=== PATIENT | male | born 1990 | race African-American/Black ===

== ENCOUNTER 2016-09-05 14:17 | Inpatient (IN) | payer OTHER ==
[2016-09-05 15:44] VITALS: BMI 22.9
--- NOTE | 2016-09-05 18:17 | HP ---
CIWA Score - CIWA Score Nausea/Vomitin Muscle Tremors: 4-Moderate,w/Arms Extend Anxiety: 4-Mod. Anxious/Guarded Agitation: 4-Moderately Restless Paroxysmal Sweats: 2 Orientation: 1-Uncertain about Date Tacttile Disturbances: 0-None Auditory Disturbances: 0-None Visual Disturbances: 0-None Headache: 0-None Present CIWA-Ar Total Score: 17 Admission ROS [facility] - HPI Chief Complaint: withdrawal sx Allergies/Adverse Reactions: Allergies Allergy/AdvReac Type Severity Reaction Status Date / Time No Known Allergies Allergy Verified 09/05/16 16:45 History of Present Illness: 26 years old male with long history of alcohol nicotine dependence, denies medical denies mental illness, longest sobriety 1 day is admitted to detox Exam Limitations: No Limitations - Ebola screening Have you traveled outside of the country in the last 21 days: No Have you had contact with anyone from an Ebola affected area: No Have you been sick,other than usual withdrawal symptoms: No Do you have a fever: No - Review of Systems Constitutional: Chills, Loss of Appetite, Changes in sleep, Unexplained wgt Loss EENT: reports: No Symptoms Reported Respiratory: reports: No Symptoms reported Cardiac: reports: No Symptoms Reported GI: reports: Nausea, Poor Appetite, Poor Fluid Intake, Vomiting, Abdominal cramping : reports: Flank Pain Musculoskeletal: reports: No Symptoms Reported Integumentary: reports: No Symptoms Reported Neuro: reports: Tremors Endocrine: reports: No Symptoms Reported Hematology: reports: No Symptoms Reported Psychiatric: reports: Judgement Intact, Mood/Affect Appropiate Other Systems: Reviewed and Negative Patient History - Patient Medical History Hx Anemia: No Hx Asthma: No Hx Chronic Obstructive Pulmonary Disease (COPD): No Hx Cancer: No Hx Cardiac Disorders: No Hx Congestive Heart Failure: No Hx Hypertension: No Hx Hypercholesterolemia: No Hx Pacemaker: No HX Cerebrovascular Accident: No Hx Seizures: No Hx Dementia: No Hx Diabetes: No Hx Gastrointestinal Disorders: No Hx Liver Disease: No Hx Genitourinary Disorders: No Hx Sexually Transmitted Disorders: No Hx Renal Disease (ESRD): No Hx Thyroid Disease: No Hx Human Immunodeficiency Virus (HIV): No Hx Hepatitis C: No Hx Depression: No Hx Suicide Attempt: No Hx Bipolar Disorder: No Hx Schizophrenia: No - Patient Surgical History Past Surgical History: No - PPD History Previous Implant?: Yes Documented Results: Negative w/o proof Implanted On Prior [facility] Admission?: No PPD to be Administered?: Yes - Smoking Cessation Smoking history: Current every day smoker Have you smoked in the past 12 months: Yes Aproximately how many cigarettes per day: 8 Cigars Per Day: 0 Hx Chewing Tobacco Use: No Initiated information on smoking cessation: Yes 'Breaking Loose' booklet given: 09/05/16 - Substance & Tx. History Hx Alcohol Use: Yes Hx Substance Use: No Substance Use Type: Alcohol Hx Substance Use Treatment: Yes - Substances Abused Alcohol Route: Oral Frequency: Daily Amount used: 4 PINTS LUZMARIA Age of first use: 16 Date of Last Use: 09/05/16 Family Disease History - Family Disease History Family Disease History: [place]: Grandparent, Respiratory: Sister (asthma) Admission Physical Exam [facility] - Vital Signs Vital Signs: Vital Signs - 24 hr 09/05/16 15:42 Temperature 97.4 F L Pulse Rate 69 Respiratory 20 Rate Blood Pressure 122/68 - Physical General Appearance: Yes: Appropriately Dressed, Moderate Distress, Thin, Tremorous, Irritable, Sweating, Anxious HEENTM: Yes: Hearing grossly Normal, Normal ENT Inspection, Normocephalic, Normal Voice Respiratory: Yes: Chest Non-Tender, Lungs Clear, Normal Breath Sounds, No Respiratory Distress, No Accessory Muscle Use Neck: Yes: Supple, Trachea in good position Breast: Yes: Breasts Symetrical Cardiology: Yes: Regular Rhythm, Regular Rate, S1, S2 Abdominal: Yes: Non Tender, Soft Genitourinary: Yes: Within Normal Limits Back: Yes: Normal Inspection Musculoskeletal: Yes: full range of Motion, Gait Steady Extremities: Yes: Normal Range of Motion, Non-Tender, Tremors Neurological: Yes: Alert, Motor Strength 5/5 Integumentary: Yes: Warm, Moist Lymphatic: Yes: Within Normal Limits - Diagnostic (1) Alcohol dependence with uncomplicated withdrawal Current Visit: Yes Status: Acute (2) Nicotine dependence Current Visit: Yes Status: Acute Qualifiers: Nicotine product type: cigarettes Substance use status: in withdrawal Qualified Code(s): F17.213 - Nicotine dependence, cigarettes, with withdrawal (3) Weight loss Current Visit: Yes Status: Acute Cleared for Admission [facility] - Detox or Rehab [facility] Level of Care: Medically Managed Detox Regimen/Protocol: Librium [facility] Breath Alcohol Content Breath Alcohol Content: 0.040 Urine Drug Screen - Results Drug Screen Negative: Yes
[2016-09-05] MEDS ORDERED: NICOTINE POLACRILEX 2 MG GUM BUC PRN (18:19)
[2016-09-05] MEDS ORDERED: ACETAMINOPHEN 325 MG TABLET (FP) PO PRN (18:19)
[2016-09-05] MEDS ORDERED: guaiFENesin/D-METHORPHAN HB 10 ML UNIT-DOSE CUPS PO PRN (18:19)
[2016-09-05] MEDS ORDERED: LOPERAMIDE HCL 2 MG CAPSULE PO PRN (18:19)
[2016-09-05] MEDS ORDERED: chlordiazePOXIDE HCL 25 MG CAPSULE PO PRN (18:19)
[2016-09-05] MEDS ORDERED: P-EPHED 60MG/TRIPROLIDI 2.5MG TABLET PO PRN (18:19)
[2016-09-05] MEDS ORDERED: MAG HYDROX/AL HYDROX/SIMETH 30 ML UNIT-DOSE CUP PO PRN (18:19)
[2016-09-05] MEDS ORDERED: MENTHOL/PHENOL 1 EACH UD MM PRN (18:19)
[2016-09-05] MEDS ORDERED: MAGNESIUM HYDROX 2400MG/30ML ORAL SUSPENSION 30 ML CUP PO PRN (18:19)
[2016-09-05] MEDS ORDERED: MAGNESIUM CITRATE 300 ML BOTTLE PO PRN (18:19)
[2016-09-05] MEDS ORDERED: IBUPROFEN 400 MG TABLET (FP) PO PRN (18:19)
[2016-09-05] MEDS ORDERED: hydrOXYzine PAMOATE 50 MG CAPSULE (FP) PO PRN (18:19)
[2016-09-05] MEDS: THIAMINE HCL 100 MG TABLET (FP) PO SCH (22:06)
[2016-09-05] MEDS: diphenhydrAMINE HCL 50 MG CAPSULE PO PRN (22:07)
[2016-09-05] MEDS: chlordiazePOXIDE HCL 25 MG CAPSULE PO SCH (22:07)
[2016-09-05 23:56] LABS: URINE APPEARANCE CLEAR; URINE BILIRUBIN NEGATIVE (NEGATIVE); URINE BLOOD NEGATIVE (NEGATIVE); URINE COLOR LTYELLOW; URINE GLUCOSE (UA) NEGATIVE (NEGATIVE); URINE KETONE NEGATIVE (NEGATIVE); URINE LEUK ESTERASE NEGATIVE (NEGATIVE); URINE NITRITE NEGATIVE (NEGATIVE); URINE PROTEIN NEGATIVE (NEGATIVE); URINE UROBILINOGEN NEGATIVE E.U./dl (0.2-1.0)
[2016-09-06] MEDS: chlordiazePOXIDE HCL 25 MG CAPSULE PO SCH ×4 (05:28→22:10)
[2016-09-06 09:45] LABS: MCH 30.5 pg (25.7-33.7); MCHC 33.2 g/dl (32.0-35.9); MEAN CELL VOLUME 91.9 fl (80-96); MEAN PLT VOLUME 8.8 fl (7.5-11.1); PLATELET COUNT 299 K/MM3 (134-434); RDW 13.3 % (11.9-15.9); WHITE BLOOD COUNT 5.6 K/mm3 (4.0-10.0)
[2016-09-06] MEDS: NICOTINE 14 MG/24 HOURS TOPICAL PATCH TD SCH (10:13)
[2016-09-06] MEDS: PRENATAL VITAMINS W/ FOLIC ACID TABLET (FP) PO SCH (10:14)
[2016-09-06 10:16] LABS: ALBUMIN 4.3 g/dl (3.4-5.0); ALK PHOS 106 U/L (45-117); ANION GAP 9 (8-16); BILIRUBIN,TOTAL 0.8 mg/dL (0.2-1.0); CALCIUM 9.8 mg/dL (8.5-10.1); CO2 28 mmol/L (21-32); GLUCOSE,RANDOM 114 mg/dL (74-106); SGOT/AST 36 U/L (15-37); SGPT/ALT 29 U/L (12-78); TOT PROT 7.8 g/dl (6.4-8.2)
--- NOTE | 2016-09-06 11:09 | PN ---
BHS CIWA - CIWA Score Nausea/Vomitin Muscle Tremors: 4-Moderate,w/Arms Extend Anxiety: 4-Mod. Anxious/Guarded Agitation: 4-Moderately Restless Paroxysmal Sweats: 3 Orientation: 0-Oriented Tacttile Disturbances: 1-Very Mild Itch/Numbness Auditory Disturbances: 0-None Visual Disturbances: 0-None Headache: 1-Very Mild CIWA-Ar Total Score: 20 BHS Progress Note (SOAP) Subjective: nausea, sweats, interrupted sleep, anxiety, tremors Objective: 09/06/16 11:08 Vital Signs - 8 hr 09/06/16 09/06/16 09/06/16 03:30 06:19 09:33 Temperature 97.7 F 97.9 F Pulse Rate 66 65 Respiratory 18 18 16 Rate Blood Pressure 122/76 119/62 Laboratory Tests 09/05/16 09/06/16 09/06/16 22:00 06:00 06:00 WBC 5.6 RBC 4.72 Hgb 14.4 Hct 43.4 MCV 91.9 MCHC 33.2 RDW 13.3 Plt Count 299 MPV 8.8 Sodium 139 Potassium 4.4 Chloride 102 Carbon Dioxide 28 Anion Gap 9 BUN 9 Creatinine 1.0 Creat Clearance w eGFR > 60 Random Glucose 114 H Calcium 9.8 Total Bilirubin 0.8 AST 36 ALT 29 Alkaline Phosphatase 106 Total Protein 7.8 Albumin 4.3 Urine Color Ltyellow Urine Appearance Clear Urine pH 8.0 Ur Specific [place] 1.019 Urine Protein Negative Urine Glucose (UA) Negative Urine Ketones Negative Urine Blood Negative Urine Nitrite Negative Urine Bilirubin Negative Urine Urobilinogen Negative Ur Leukocyte Esterase Negative Assessment: 09/06/16 11:08 withdrawal sx Plan: cont detox
[2016-09-06] MEDS: THIAMINE HCL 100 MG TABLET (FP) PO SCH (22:10)
--- NOTE | 2016-09-06 23:34 | EKG ---
Test Reason : Blood Pressure : / mmHG Vent. Rate : 060 BPM Atrial Rate : 060 BPM P-R Int : 128 ms QRS Dur : 116 ms QT Int : 404 ms P-R-T Axes : 062 -06 031 degrees QTc Int : 404 ms NORMAL SINUS RHYTHM WITH SINUS ARRHYTHMIA NORMAL ECG WHEN COMPARED WITH ECG OF 05-SEP-2016 20:24, RSR' PATTERN IN V1 IS NO LONGER PRESENT Confirmed by FRANDY DOHERTY, KRISTIN ([id number]) on 09/06/2016 11:33:57 PM Referred By: Manish Gutierres Confirmed By:KRISTIN WISE MD
--- NOTE | 2016-09-06 23:35 | EKG ---
Test Reason : Blood Pressure : / mmHG Vent. Rate : 057 BPM Atrial Rate : 057 BPM P-R Int : 140 ms QRS Dur : 098 ms QT Int : 394 ms P-R-T Axes : -06 -12 028 degrees QTc Int : 383 ms SINUS BRADYCARDIA RSR' OR QR PATTERN IN V1 SUGGESTS RIGHT VENTRICULAR CONDUCTION DELAY SEPTAL INFARCT , AGE UNDETERMINED ABNORMAL ECG NO PREVIOUS ECGS AVAILABLE Confirmed by KRISTIN WISE MD ([id number]) on 09/06/2016 11:35:11 PM Referred By: Manish Gutierres Confirmed By:KRISTIN WISE MD
[2016-09-07] MEDS: chlordiazePOXIDE HCL 25 MG CAPSULE PO SCH ×3 (05:42→17:39)
[2016-09-07] MEDS: NICOTINE 14 MG/24 HOURS TOPICAL PATCH TD SCH (10:18)
[2016-09-07] MEDS: PRENATAL VITAMINS W/ FOLIC ACID TABLET (FP) PO SCH (10:18)
--- NOTE | 2016-09-07 10:54 | PN ---
S CIWA - CIWA Score Nausea/Vomitin-No Nausea/No Vomiting Muscle Tremors: 4-Moderate,w/Arms Extend Anxiety: 4-Mod. Anxious/Guarded Agitation: 4-Moderately Restless Paroxysmal Sweats: 3 Orientation: 0-Oriented Tacttile Disturbances: 0-None Auditory Disturbances: 0-None Visual Disturbances: 0-None Headache: 0-None Present CIWA-Ar Total Score: 15 BHS Progress Note (SOAP) Subjective: tired sweats shakes interrupted sleep irritable Objective: 09/07/16 10:52 Vital Signs Temperature 98.4 F 09/07/16 09:54 Pulse Rate 90 09/07/16 09:54 Respiratory Rate 20 09/07/16 09:54 Blood Pressure 102/62 09/07/16 09:54 O2 Sat by Pulse Oximetry (%) Laboratory Tests 09/05/16 09/06/16 09/06/16 22:00 06:00 06:00 WBC 5.6 RBC 4.72 Hgb 14.4 Hct 43.4 MCV 91.9 MCHC 33.2 RDW 13.3 Plt Count 299 MPV 8.8 Sodium 139 Potassium 4.4 Chloride 102 Carbon Dioxide 28 Anion Gap 9 BUN 9 Creatinine 1.0 Creat Clearance w eGFR > 60 Random Glucose 114 H Calcium 9.8 Total Bilirubin 0.8 AST 36 ALT 29 Alkaline Phosphatase 106 Total Protein 7.8 Albumin 4.3 Urine Color Ltyellow Urine Appearance Clear Urine pH 8.0 Ur Specific [place] 1.019 Urine Protein Negative Urine Glucose (UA) Negative Urine Ketones Negative Urine Blood Negative Urine Nitrite Negative Urine Bilirubin Negative Urine Urobilinogen Negative Ur Leukocyte Esterase Negative RPR Titer 09/06/16 06:00 WBC RBC Hgb Hct MCV MCHC RDW Plt Count MPV Sodium Potassium Chloride Carbon Dioxide Anion Gap BUN Creatinine Creat Clearance w eGFR Random Glucose Calcium Total Bilirubin AST ALT Alkaline Phosphatase Total Protein Albumin Urine Color Urine Appearance Urine pH Ur Specific [place] Urine Protein Urine Glucose (UA) Urine Ketones Urine Blood Urine Nitrite Urine Bilirubin Urine Urobilinogen Ur Leukocyte Esterase RPR Titer Nonreactive awake/alert ambulating no acute distress Assessment: 09/07/16 10:52 withdrawal sx Plan: continue detox increase fluids
[2016-09-07] MEDS: diphenhydrAMINE HCL 50 MG CAPSULE PO PRN (22:11)
[2016-09-07] MEDS: THIAMINE HCL 100 MG TABLET (FP) PO SCH (22:12)
[2016-09-07] MEDS: chlordiazePOXIDE 5 MG CAPSULE PO SCH (22:12)
[2016-09-08] MEDS: chlordiazePOXIDE 5 MG CAPSULE PO SCH ×3 (05:56→17:55)
[2016-09-08] MEDS: NICOTINE 14 MG/24 HOURS TOPICAL PATCH TD SCH (10:10)
[2016-09-08] MEDS: PRENATAL VITAMINS W/ FOLIC ACID TABLET (FP) PO SCH (10:13)
--- NOTE | 2016-09-08 10:39 | PN ---
BHS Progress Note (SOAP) Subjective: sweats interrupted sleep Objective: 09/08/16 10:38 Vital Signs Temperature 97 F L 09/08/16 09:33 Pulse Rate 108 H 09/08/16 09:33 Respiratory Rate 20 09/08/16 09:33 Blood Pressure 102/59 09/08/16 09:33 O2 Sat by Pulse Oximetry (%) awake/alert ambulating no acute distress Assessment: 09/08/16 10:39 withdrawal sx Plan: continue detox increase fluids d/c in am
[2016-09-08] MEDS: chlordiazePOXIDE HCL 10 MG CAPSULE PO SCH (22:27)
[2016-09-08] MEDS: diphenhydrAMINE HCL 50 MG CAPSULE PO PRN (22:27)
[2016-09-08] MEDS: THIAMINE HCL 100 MG TABLET (FP) PO SCH (22:27)
[2016-09-09] MEDS: chlordiazePOXIDE HCL 10 MG CAPSULE PO SCH ×2 (05:32→10:54)
[2016-09-09 06:26] VITALS: PULSE 95
--- NOTE | 2016-09-09 08:57 | PN ---
S Progress Note (SOAP) Subjective: ALERT,NO COMPLAINT Objective: 09/09/16 08:56 Vital Signs Temperature 97.9 F 09/09/16 06:00 Pulse Rate 95 H 09/09/16 06:00 Respiratory Rate 18 09/09/16 06:00 Blood Pressure 100/65 09/09/16 06:00 O2 Sat by Pulse Oximetry (%) Assessment: 09/09/16 08:56 DETOX COMPLETED,NO WITHDRAWAL SYMPTOM Plan: DISCHARGE TODAY,FOLLOW UP WITH AFTER CARE PROGRAM ARRANGEMENT
--- NOTE | 2016-09-09 08:59 | DS ---
[facility] Detox Discharge Summary Admission Date: 09/05/16 Discharge Date: 09/09/16 - History Present History: Alcohol Dependence Additional Comments: FOLLOW UP WITH [facility] ARRANGEMENT Pertinent Past History: NICOTINE DEPENDENCE - Physical Exam Results Vital Signs: Vital Signs Temperature 97.9 F 09/09/16 06:00 Pulse Rate 95 H 09/09/16 06:00 Respiratory Rate 18 09/09/16 06:00 Blood Pressure 100/65 09/09/16 06:00 O2 Sat by Pulse Oximetry (%) Pertinent Admission Physical Exam Findings: WITHDRAWAL SYMPTOM - Treatment Hospital Course: Detox Protocol Followed, Detoxed Safely, Responded well, Discharged Condition Good Patient has Accepted a Rehab Referral to: [facility] - Medication Discharge Medications: Ambulatory Orders NK [No Known Home Medication] 09/05/16 - AMA Did Patient Leave Against Medical Advice: No
[2016-09-09] MEDS: PRENATAL VITAMINS W/ FOLIC ACID TABLET (FP) PO SCH (10:54)
[2016-09-09] MEDS: NICOTINE 14 MG/24 HOURS TOPICAL PATCH TD SCH (10:54)
[2016-09-09 11:26] VITALS: BP 125/75; TEMP 98.2
== END 2016-09-09 13:30 | disposition other institution (70) | DRG 775 ==
LOC: YASAS 14:17 → Y6N 17:31
PROVIDERS: ADMIT Internal Medicine Addiction Medicine; ATTEND Internal Medicine Addiction Medicine
PROC: HZ2ZZZZ Detoxification Services for Substance Abuse Treatment (ICD-10-PCS; principal; 2016-09-09)
DX: F10.230 Alcohol dependence with withdrawal, uncomplicated (principal); F17.213 Nicotine dependence, cigarettes, with withdrawal; R63.4 Abnormal weight loss; Z68.23 Body mass index [BMI] 23.0-23.9, adult
CPT/HCPCS: 36415; 80053; 81003; 85027; 86593; 93005; 93010

== ENCOUNTER 2016-09-09 13:54 | Inpatient (IN) | payer OTHER ==
--- NOTE | 2016-09-09 15:35 | HP ---
Psychiatrist Admission - Data Date of interview: 09/09/16 Admission source: 3N Identifying data: This is the first 5N inpatient rehabilitation admission for thsi 26 year old single male , father of one residing with his mother, grandmother in [facility]. He is unemployed and supported by family. Medical History: Reports good physical health, smokes 8-10 cigarettes a day. Psychiatric History: Denies history of psychiatric treatment. Physical/Sexual Abuse/Trauma History: Denies history of sexual, physical and verbal abuse. Vital Signs: Vital Signs - 24 hr 09/09/16 14:38 Temperature 98.6 F Pulse Rate 98 H Respiratory 18 Rate Blood Pressure 125/73 Allergies/Adverse Reactions: Allergies Allergy/AdvReac Type Severity Reaction Status Date / Time No Known Allergies Allergy Verified 09/05/16 16:45 Date of last physical exam: 08/26/16 Concur with the findings of this exam: Yes - Substance Abuse/Tx History Hx Alcohol Use: Yes (4 pints of liquor daily) Hx Substance Use: No Substance Use Type: Alcohol (stared drinking at age of 14) Hx Substance Use Treatment: No (this is the first rehab. tx) - Admission Criteria Previous failed treatment: No Poor recovery environment: Yes Comorbidities: No Lacks judgement: Yes Mental Status Exam - Mental Status Exam Alert and Oriented to: Time, Place, Person Cognitive Function: Good Patient Appearance: Well Groomed Mood: Hopeful Affect: Appropriate, Mood Congruent Patient Behavior: Appropriate, Cooperative Speech Pattern: Clear, Appropriate Voice Loudness: Normal Thought Process: Intact, Goal Oriented Thought Disorder: Not Present Hallucinations: Denies Suicidal Ideation: Denies Homicidal Ideation: Denies Insight/Judgement: Fair Sleep: Fair Appetite: Fair Muscle strength/Tone: Normal Gait/Station: Normal Psychiatric Findings - Problem List ([place] 1, 2,3) (1) Nicotine dependence Current Visit: No Status: Acute Qualifiers: Nicotine product type: cigarettes Substance use status: in withdrawal Qualified Code(s): F17.213 - Nicotine dependence, cigarettes, with withdrawal (2) Alcohol dependence Current Visit: Yes Status: Acute - Initial Treatment Plan Initial Treatment Plan: Patient made aware of Benadryl PRN for insomnia,will continue to monitor progress as needed.
[2016-09-09] MEDS ORDERED: MAGNESIUM CITRATE 300 ML BOTTLE PO PRN (15:44)
[2016-09-09] MEDS ORDERED: P-EPHED 60MG/TRIPROLIDI 2.5MG TABLET PO PRN (15:44)
[2016-09-09] MEDS ORDERED: guaiFENesin/D-METHORPHAN HB 10 ML UNIT-DOSE CUPS PO PRN (15:44)
[2016-09-09] MEDS ORDERED: MENTHOL/PHENOL 1 EACH UD MM PRN (15:44)
[2016-09-09] MEDS ORDERED: MAG HYDROX/AL HYDROX/SIMETH 30 ML UNIT-DOSE CUP PO PRN (15:44)
[2016-09-09] MEDS ORDERED: MAGNESIUM HYDROX 2400MG/30ML ORAL SUSPENSION 30 ML CUP PO PRN (15:44)
[2016-09-09] MEDS ORDERED: NICOTINE POLACRILEX 2 MG GUM BUC PRN (15:44)
[2016-09-09] MEDS ORDERED: hydrOXYzine PAMOATE 50 MG CAPSULE (FP) PO PRN (15:44)
[2016-09-09] MEDS ORDERED: LOPERAMIDE HCL 2 MG CAPSULE PO PRN (15:44)
--- NOTE | 2016-09-09 16:23 | HP ---
[facility] Rehab Assess/Revision - Admission History Admitted to Rehab from: [facility] Date of Admission to Rehab: 09/09/16 - Vital signs Vital Signs: Vital Signs Period Temp Pulse Resp BP Sys/Dang Pulse Ox Last 24 Hr 98.6 F 98 18 125/73 - Findings Detox History & Physical reviewed: Yes Concur with findings: Yes Comments/Additional Findings: transferred from detox to rehab admission as per protocol
[2016-09-09] MEDS ORDERED: PNEUMOC 13-VAL CONJ-DIP CRM/PF 0.5 ML DISP.SYRIN IM ONE (17:00)
[2016-09-09] MEDS: THIAMINE HCL 100 MG TABLET (FP) PO SCH (21:40)
[2016-09-10] MEDS: NICOTINE 14 MG/24 HOURS TOPICAL PATCH TD SCH (10:18)
[2016-09-10] MEDS: PRENATAL VITAMINS W/ FOLIC ACID TABLET (FP) PO SCH (10:18)
[2016-09-10] MEDS ORDERED: INFLUENZA VACCINE 45 MCG/0.5 ML (MDV 16-17) IM ONE (12:00)
[2016-09-10 14:30] LABS: HIV 1 & 2 AB NEGATIVE; HIV 1 AGp24 NEGATIVE
[2016-09-10] MEDS: THIAMINE HCL 100 MG TABLET (FP) PO SCH (21:27)
[2016-09-11] MEDS: NICOTINE 14 MG/24 HOURS TOPICAL PATCH TD SCH (10:00)
[2016-09-11] MEDS: PRENATAL VITAMINS W/ FOLIC ACID TABLET (FP) PO SCH (10:00)
[2016-09-11] MEDS: THIAMINE HCL 100 MG TABLET (FP) PO SCH (21:50)
[2016-09-11] MEDS: diphenhydrAMINE HCL 50 MG CAPSULE PO PRN (21:51)
[2016-09-12] MEDS: PRENATAL VITAMINS W/ FOLIC ACID TABLET (FP) PO SCH (10:21)
[2016-09-12] MEDS: NICOTINE 14 MG/24 HOURS TOPICAL PATCH TD SCH (10:22)
[2016-09-12] MEDS: IBUPROFEN 400 MG TABLET (FP) PO PRN (20:07)
[2016-09-12] MEDS: LIDOCAINE VISCOUS 2% ORAL/TOP 20 ML UNIT-DOSE CUP MM PRN (20:20)
[2016-09-12] MEDS: diphenhydrAMINE HCL 50 MG CAPSULE PO PRN (21:45)
[2016-09-12] MEDS: THIAMINE HCL 100 MG TABLET (FP) PO SCH (21:45)
[2016-09-12] MEDS: ACETAMINOPHEN 325 MG TABLET (FP) PO PRN (22:29)
[2016-09-13] MEDS: diphenhydrAMINE HCL 50 MG CAPSULE PO PRN (00:36)
[2016-09-13] MEDS: IBUPROFEN 400 MG TABLET (FP) PO PRN ×2 (03:40→14:54)
[2016-09-13] MEDS: LIDOCAINE VISCOUS 2% ORAL/TOP 20 ML UNIT-DOSE CUP MM PRN ×3 (06:49→23:28)
[2016-09-13] MEDS: PRENATAL VITAMINS W/ FOLIC ACID TABLET (FP) PO SCH (10:28)
[2016-09-13] MEDS: NICOTINE 14 MG/24 HOURS TOPICAL PATCH TD SCH (10:30)
[2016-09-13] MEDS: ACETAMINOPHEN 325 MG TABLET (FP) PO PRN ×2 (11:10→20:11)
--- NOTE | 2016-09-13 12:10 | PN ---
BHS Progress Note Note: infected dental cavity left,will give pen v k 500 mgs po q 6 hrs x 7days, xylociane viscous,motrin 400 mgs po q 6 hrs prn for pain
[2016-09-13] MEDS: PENICILLIN V POTASSIUM 500 MG TABLET PO SCH ×2 (17:34→23:28)
[2016-09-13] MEDS: THIAMINE HCL 100 MG TABLET (FP) PO SCH (21:45)
[2016-09-14] MEDS: IBUPROFEN 400 MG TABLET (FP) PO PRN ×3 (01:43→18:27)
[2016-09-14] MEDS: ACETAMINOPHEN 325 MG TABLET (FP) PO PRN ×2 (06:28→11:43)
[2016-09-14] MEDS: PENICILLIN V POTASSIUM 500 MG TABLET PO SCH ×3 (06:28→18:27)
[2016-09-14] MEDS: LIDOCAINE VISCOUS 2% ORAL/TOP 20 ML UNIT-DOSE CUP MM PRN ×2 (06:29→19:30)
[2016-09-14] MEDS: PRENATAL VITAMINS W/ FOLIC ACID TABLET (FP) PO SCH (09:39)
[2016-09-14] MEDS: NICOTINE 14 MG/24 HOURS TOPICAL PATCH TD SCH (09:40)
[2016-09-14] MEDS: THIAMINE HCL 100 MG TABLET (FP) PO SCH (21:36)
[2016-09-14] MEDS: diphenhydrAMINE HCL 50 MG CAPSULE PO PRN (21:36)
[2016-09-15] MEDS: PENICILLIN V POTASSIUM 500 MG TABLET PO SCH ×5 (00:38→23:39)
[2016-09-15] MEDS: IBUPROFEN 400 MG TABLET (FP) PO PRN ×4 (03:34→23:40)
[2016-09-15] MEDS: LIDOCAINE VISCOUS 2% ORAL/TOP 20 ML UNIT-DOSE CUP MM PRN ×2 (03:35→23:56)
[2016-09-15] MEDS: PRENATAL VITAMINS W/ FOLIC ACID TABLET (FP) PO SCH (09:51)
[2016-09-15] MEDS: NICOTINE 14 MG/24 HOURS TOPICAL PATCH TD SCH (09:53)
[2016-09-15] MEDS: THIAMINE HCL 100 MG TABLET (FP) PO SCH (21:25)
[2016-09-15] MEDS: diphenhydrAMINE HCL 50 MG CAPSULE PO PRN (23:40)
[2016-09-16] MEDS: PENICILLIN V POTASSIUM 500 MG TABLET PO SCH ×4 (06:08→23:03)
[2016-09-16] MEDS: ACETAMINOPHEN 325 MG TABLET (FP) PO PRN (06:08)
[2016-09-16] MEDS: PRENATAL VITAMINS W/ FOLIC ACID TABLET (FP) PO SCH (09:50)
[2016-09-16] MEDS: NICOTINE 14 MG/24 HOURS TOPICAL PATCH TD SCH (09:50)
[2016-09-16] MEDS: IBUPROFEN 400 MG TABLET (FP) PO PRN ×2 (09:51→16:36)
[2016-09-16] MEDS: diphenhydrAMINE HCL 50 MG CAPSULE PO PRN (21:20)
[2016-09-16] MEDS: THIAMINE HCL 100 MG TABLET (FP) PO SCH (21:20)
[2016-09-17] MEDS: PENICILLIN V POTASSIUM 500 MG TABLET PO SCH ×4 (06:15→23:36)
[2016-09-17] MEDS: IBUPROFEN 400 MG TABLET (FP) PO PRN ×2 (06:16→21:21)
[2016-09-17] MEDS: NICOTINE 14 MG/24 HOURS TOPICAL PATCH TD SCH (10:13)
[2016-09-17] MEDS: PRENATAL VITAMINS W/ FOLIC ACID TABLET (FP) PO SCH (10:13)
[2016-09-17] MEDS: THIAMINE HCL 100 MG TABLET (FP) PO SCH (21:20)
[2016-09-17] MEDS: diphenhydrAMINE HCL 50 MG CAPSULE PO PRN (23:30)
[2016-09-18] MEDS: PENICILLIN V POTASSIUM 500 MG TABLET PO SCH ×4 (06:14→23:15)
[2016-09-18] MEDS: NICOTINE 14 MG/24 HOURS TOPICAL PATCH TD SCH (10:06)
[2016-09-18] MEDS: PRENATAL VITAMINS W/ FOLIC ACID TABLET (FP) PO SCH (10:06)
[2016-09-18] MEDS: IBUPROFEN 400 MG TABLET (FP) PO PRN (17:30)
[2016-09-18] MEDS: THIAMINE HCL 100 MG TABLET (FP) PO SCH (21:19)
[2016-09-18] MEDS: diphenhydrAMINE HCL 50 MG CAPSULE PO PRN (23:16)
[2016-09-19] MEDS: PENICILLIN V POTASSIUM 500 MG TABLET PO SCH ×4 (06:23→23:54)
[2016-09-19] MEDS: NICOTINE 14 MG/24 HOURS TOPICAL PATCH TD SCH (10:10)
[2016-09-19] MEDS: PRENATAL VITAMINS W/ FOLIC ACID TABLET (FP) PO SCH (10:10)
[2016-09-19] MEDS: THIAMINE HCL 100 MG TABLET (FP) PO SCH (21:20)
[2016-09-20] MEDS: PENICILLIN V POTASSIUM 500 MG TABLET PO SCH ×3 (06:25→17:57)
[2016-09-20] MEDS: PRENATAL VITAMINS W/ FOLIC ACID TABLET (FP) PO SCH (10:12)
[2016-09-20] MEDS: NICOTINE 14 MG/24 HOURS TOPICAL PATCH TD SCH (10:13)
[2016-09-20] MEDS: THIAMINE HCL 100 MG TABLET (FP) PO SCH (21:06)
[2016-09-20] MEDS: diphenhydrAMINE HCL 50 MG CAPSULE PO PRN (23:35)
[2016-09-21] MEDS: NICOTINE 14 MG/24 HOURS TOPICAL PATCH TD SCH (09:57)
[2016-09-21] MEDS: PRENATAL VITAMINS W/ FOLIC ACID TABLET (FP) PO SCH (09:57)
[2016-09-21] MEDS: THIAMINE HCL 100 MG TABLET (FP) PO SCH (22:00)
[2016-09-21] MEDS: diphenhydrAMINE HCL 50 MG CAPSULE PO PRN (23:24)
[2016-09-22] MEDS: ACETAMINOPHEN 325 MG TABLET (FP) PO PRN (06:26)
[2016-09-22] MEDS: NICOTINE 14 MG/24 HOURS TOPICAL PATCH TD SCH (09:48)
[2016-09-22] MEDS: PRENATAL VITAMINS W/ FOLIC ACID TABLET (FP) PO SCH (09:48)
[2016-09-22] MEDS: IBUPROFEN 400 MG TABLET (FP) PO PRN ×2 (16:35→23:12)
[2016-09-22] MEDS: diphenhydrAMINE HCL 50 MG CAPSULE PO PRN (21:13)
[2016-09-22] MEDS: THIAMINE HCL 100 MG TABLET (FP) PO SCH (21:13)
[2016-09-23] MEDS: IBUPROFEN 400 MG TABLET (FP) PO PRN (06:20)
[2016-09-23] MEDS: PRENATAL VITAMINS W/ FOLIC ACID TABLET (FP) PO SCH (10:05)
[2016-09-23] MEDS: NICOTINE 14 MG/24 HOURS TOPICAL PATCH TD SCH (10:06)
[2016-09-23] MEDS: THIAMINE HCL 100 MG TABLET (FP) PO SCH (21:46)
[2016-09-23] MEDS: diphenhydrAMINE HCL 50 MG CAPSULE PO PRN (21:46)
[2016-09-24] MEDS: PRENATAL VITAMINS W/ FOLIC ACID TABLET (FP) PO SCH (09:55)
[2016-09-24] MEDS: NICOTINE 14 MG/24 HOURS TOPICAL PATCH TD SCH (09:56)
[2016-09-24] MEDS: diphenhydrAMINE HCL 50 MG CAPSULE PO PRN (21:29)
[2016-09-24] MEDS: THIAMINE HCL 100 MG TABLET (FP) PO SCH (21:29)
[2016-09-25] MEDS: PRENATAL VITAMINS W/ FOLIC ACID TABLET (FP) PO SCH (10:19)
[2016-09-25] MEDS: IBUPROFEN 400 MG TABLET (FP) PO PRN (10:19)
[2016-09-25] MEDS: NICOTINE 14 MG/24 HOURS TOPICAL PATCH TD SCH (10:20)
[2016-09-25] MEDS: diphenhydrAMINE HCL 50 MG CAPSULE PO PRN (21:09)
[2016-09-25] MEDS: THIAMINE HCL 100 MG TABLET (FP) PO SCH (21:09)
[2016-09-26] MEDS: NICOTINE 14 MG/24 HOURS TOPICAL PATCH TD SCH (09:55)
[2016-09-26] MEDS: PRENATAL VITAMINS W/ FOLIC ACID TABLET (FP) PO SCH (09:55)
[2016-09-26] MEDS: THIAMINE HCL 100 MG TABLET (FP) PO SCH (21:40)
[2016-09-26] MEDS: diphenhydrAMINE HCL 50 MG CAPSULE PO PRN (21:41)
[2016-09-27] MEDS: PRENATAL VITAMINS W/ FOLIC ACID TABLET (FP) PO SCH (09:54)
[2016-09-27] MEDS: NICOTINE 14 MG/24 HOURS TOPICAL PATCH TD SCH (09:55)
[2016-09-27] MEDS: THIAMINE HCL 100 MG TABLET (FP) PO SCH (21:15)
[2016-09-27] MEDS: diphenhydrAMINE HCL 50 MG CAPSULE PO PRN (21:15)
[2016-09-28] MEDS: NICOTINE 14 MG/24 HOURS TOPICAL PATCH TD SCH (09:49)
[2016-09-28] MEDS: PRENATAL VITAMINS W/ FOLIC ACID TABLET (FP) PO SCH (09:49)
[2016-09-28] MEDS: diphenhydrAMINE HCL 50 MG CAPSULE PO PRN (21:28)
[2016-09-28] MEDS: THIAMINE HCL 100 MG TABLET (FP) PO SCH (21:28)
[2016-09-29] MEDS: NICOTINE 14 MG/24 HOURS TOPICAL PATCH TD SCH (09:44)
[2016-09-29] MEDS: PRENATAL VITAMINS W/ FOLIC ACID TABLET (FP) PO SCH (09:44)
[2016-09-29] MEDS: diphenhydrAMINE HCL 50 MG CAPSULE PO PRN (21:29)
[2016-09-29] MEDS: THIAMINE HCL 100 MG TABLET (FP) PO SCH (21:29)
[2016-09-30] MEDS: PRENATAL VITAMINS W/ FOLIC ACID TABLET (FP) PO SCH (09:38)
[2016-09-30] MEDS: NICOTINE 14 MG/24 HOURS TOPICAL PATCH TD SCH (09:39)
[2016-09-30] MEDS: THIAMINE HCL 100 MG TABLET (FP) PO SCH (21:30)
[2016-09-30] MEDS: diphenhydrAMINE HCL 50 MG CAPSULE PO PRN (21:30)
[2016-10-01] MEDS: PRENATAL VITAMINS W/ FOLIC ACID TABLET (FP) PO SCH (10:02)
[2016-10-01] MEDS: NICOTINE 14 MG/24 HOURS TOPICAL PATCH TD SCH (10:02)
[2016-10-01] MEDS: diphenhydrAMINE HCL 50 MG CAPSULE PO PRN (21:30)
[2016-10-01] MEDS: THIAMINE HCL 100 MG TABLET (FP) PO SCH (21:30)
[2016-10-02] MEDS: NICOTINE 14 MG/24 HOURS TOPICAL PATCH TD SCH (10:11)
[2016-10-02] MEDS: PRENATAL VITAMINS W/ FOLIC ACID TABLET (FP) PO SCH (10:11)
[2016-10-02] MEDS: THIAMINE HCL 100 MG TABLET (FP) PO SCH (21:01)
[2016-10-02] MEDS: diphenhydrAMINE HCL 50 MG CAPSULE PO PRN (21:01)
[2016-10-03] MEDS: NICOTINE 14 MG/24 HOURS TOPICAL PATCH TD SCH (09:41)
[2016-10-03] MEDS: PRENATAL VITAMINS W/ FOLIC ACID TABLET (FP) PO SCH (09:41)
[2016-10-03] MEDS: THIAMINE HCL 100 MG TABLET (FP) PO SCH (21:32)
[2016-10-03] MEDS: diphenhydrAMINE HCL 50 MG CAPSULE PO PRN (21:33)
[2016-10-04] MEDS: NICOTINE 14 MG/24 HOURS TOPICAL PATCH TD SCH (09:43)
[2016-10-04] MEDS: PRENATAL VITAMINS W/ FOLIC ACID TABLET (FP) PO SCH (09:43)
[2016-10-04] MEDS: diphenhydrAMINE HCL 50 MG CAPSULE PO PRN (21:35)
[2016-10-04] MEDS: THIAMINE HCL 100 MG TABLET (FP) PO SCH (21:35)
[2016-10-05] MEDS: PRENATAL VITAMINS W/ FOLIC ACID TABLET (FP) PO SCH (09:56)
[2016-10-05] MEDS: NICOTINE 14 MG/24 HOURS TOPICAL PATCH TD SCH (09:57)
[2016-10-05] MEDS: diphenhydrAMINE HCL 50 MG CAPSULE PO PRN (21:52)
[2016-10-05] MEDS: THIAMINE HCL 100 MG TABLET (FP) PO SCH (21:52)
[2016-10-06 07:02] VITALS: BP 129/79; PULSE 88; TEMP 97.2
[2016-10-06] MEDS: PRENATAL VITAMINS W/ FOLIC ACID TABLET (FP) PO SCH (09:59)
[2016-10-06] MEDS: NICOTINE 14 MG/24 HOURS TOPICAL PATCH TD SCH (09:59)
--- NOTE | 2016-10-06 10:25 | PN ---
Psychiatric Progress Note Vital Signs: Vital Signs Period Temp Pulse Resp BP Sys/Dang Pulse Ox Last 24 Hr 97.2 F 88 16-16 129/79 Date of Session: 10/06/16 Chief Complaint:: discharge visit HPI: Patient has addressed alcohol, nicotine dependence. Current Medications: Active Medications Generic Name Dose Route Start Last Admin Trade Name Freq PRN Reason Stop Dose Admin Acetaminophen 650 mg 09/09/16 15:44 09/22/16 06:26 Tylenol - PO 650 mg Q4H PRN Administration FEVER OR PAIN Al Hydroxide/Mg Hydroxide 30 ml 09/09/16 15:44 Mylanta Oral Suspension - PO Q6H PRN DYSPEPSIA Diphenhydramine HCl 50 mg 09/09/16 15:44 10/05/16 21:52 Benadryl - PO 50 mg HSMR1 PRN Administration FOR ITCHING Eucalyptus/Menthol/Phenol/Sorbitol 1 each 09/09/16 15:44 Cepastat Lozenge - MM Q4H PRN SORE THROAT Guaifenesin 10 ml 09/09/16 15:44 Robitussin Dm - PO Q6H PRN COUGH Hydroxyzine Pamoate 50 mg 09/09/16 15:44 Vistaril - PO Q4H PRN AGITATION Ibuprofen 400 mg 09/09/16 15:44 09/25/16 10:19 Motrin - PO 400 mg Q6H PRN Administration PAIN Lidocaine HCl 20 ml 09/12/16 20:16 09/15/16 23:56 Xylocaine 2% Viscous Oral - MM 20 ml Q6HPO PRN Administration ORAL PAIN/MOUTH SORES Loperamide HCl 4 mg 09/09/16 15:44 Imodium - PO Q6H PRN DIARRHEA Magnesium Hydroxide 30 ml 09/09/16 15:44 Milk Of Magnesia - PO DAILY PRN CONSTIPATION Nicotine 14 mg 09/10/16 10:00 10/06/16 09:59 Nicoderm Patch - TD Not Given DAILY TALITA Nicotine Polacrilex 2 mg 09/09/16 15:44 Nicorette Gum - BUC Q2H PRN NICOTINE REPLACEMENT RX Multivit/Folic Acid/Iron 1 tab 09/10/16 10:00 10/06/16 09:59 Vitamins ([facility]) - PO 1 tab DAILY TALITA Administration Pseudoephedrine/Triprolidine 1 combo 09/09/16 15:44 Actifed - PO TID PRN NASAL CONGESTION Thiamine HCl 100 mg 09/09/16 22:00 10/05/16 21:52 Vitamin B1 - PO 100 mg HS TALITA Administration Current Side Effect: No Lab tests ordered: No Lab tests reviewed: Yes Provider note:: Patient has completed today his treatment and met his goals, will contiue to address his issues at [facility] outpatient treatment program. Patient reports that he has learned throught this program "a lot", coping skills ,changing attitudes and utilization all of supports available to prevent relapses. Patient was encouraged to continue maintain abstinence and be adherent to every aspects of his outpatient treatment plans. Patient is stable for discharge today. Total face to face time:: 35 Mental Status Exam - Mental Status Exam Alert and Oriented to: Time, Place, Person Cognitive Function: Good, Grossly Intact Patient Appearance: Well Groomed Mood: Hopeful Affect: Appropriate, Mood Congruent Patient Behavior: Appropriate, Cooperative Speech Pattern: Clear, Appropriate Voice Loudness: Normal Thought Process: Intact, Goal Oriented Thought Disorder: Not Present Hallucinations: None, Denies Suicidal Ideation: None, Denies Homicidal Ideation: None, Denies Insight/Judgement: Good Sleep: Well Appetite: Good Muscle strength/Tone: Normal Gait/Station: Normal Psychiatric Treatment Plan - Problem List (1) Nicotine dependence Current Visit: No Qualifiers: Nicotine product type: cigarettes Substance use status: in withdrawal Qualified Code(s): F17.213 - Nicotine dependence, cigarettes, with withdrawal (2) Alcohol dependence Current Visit: Yes
== END 2016-10-06 11:00 | disposition home or self-care (01) | DRG 772 ==
LOC: YASAS 13:54 → Y5N 13:56
PROVIDERS: ADMIT Psychiatry & Neurology Psychiatry; ATTEND Psychiatry & Neurology Psychiatry
PROC: HZ42ZZZ Group Counseling for Substance Abuse Treatment, Cognitive-Behavioral (ICD-10-PCS; principal; 2016-10-06)
DX: F10.230 Alcohol dependence with withdrawal, uncomplicated (principal); F17.210 Nicotine dependence, cigarettes, uncomplicated
CPT/HCPCS: 36415; 87389

== ENCOUNTER 2019-04-06 12:00 | Inpatient (IN) | payer OTHER ==
[2019-04-06 12:53] VITALS: BMI 21.2
--- NOTE | 2019-04-06 13:54 | HP ---
CIWA Score Nausea/Vomitin Muscle Tremors: 4-Moderate,w/Arms Extend Anxiety: 4-Mod. Anxious/Guarded Agitation: 2 Paroxysmal Sweats: No Perspiration Orientation: 0-Oriented Tacttile Disturbances: 0-None Auditory Disturbances: 0-None Visual Disturbances: 1-Very Mild Sensitivity Headache: 2-Mild CIWA-Ar Total Score: 15 - Admission Criteria OASAS Guidelines: Admission for Medically Managed Detox: Requires at least one of the followin. CIWA greater than 12 2. Seizures within the past 24 hours 3. Delirium tremens within the past 24 hours 4. Hallucinations within the past 24 hours 5. Acute intervention needed for co occurring medical disorder 6. Acute intervention needed for co occurring psychiatric disorder 7. Severe withdrawal that cannot be handled at a lower level of care (continued vomiting, continued diarrhea, abnormal vital signs) requiring intravenous medication and/or fluids 8. Patient presents the following: CIWA greater than 12 Admission Criteria Met: Admission criteria met Admission ROS BHS - HPI Chief Complaint: I want to better my life, I want to stop drinking Allergies/Adverse Reactions: Allergies Allergy/AdvReac Type Severity Reaction Status Date / Time No Known Allergies Allergy Verified 04/06/19 12:47 History of Present Illness: 28 yo gentleman here for detox from alcohol - also using ecstasy/ methamphetamines alternating with alprazolam. History of previous detox and rehab here in in Sep 2016 - states he did well for a few months but then relapsed. Was in a nursing home earlier this year when he and then girlfriend were evicted. Currently living with grandmother after breaking up with girlfriend. No seizures but has had black outs. Wants to get a job, get his life back. Exam Limitations: No Limitations - Ebola screening Have you traveled outside of the country in the last 21 days: No (N) Have you had contact with anyone from an Ebola affected area: No Do you have a fever: No - Review of Systems Constitutional: Loss of Appetite, Malaise, Changes in sleep, Unintentional Wgt. Loss EENT: reports: No Symptoms Reported Respiratory: reports: No Symptoms reported Cardiac: reports: No Symptoms Reported GI: reports: Nausea, Poor Appetite, Poor Fluid Intake, Indigestion, Abdominal cramping : reports: Frequency Musculoskeletal: reports: No Symptoms Reported Integumentary: reports: Dryness Neuro: reports: Headache, Tremors Endocrine: reports: No Symptoms Reported Hematology: reports: No Symptoms Reported Psychiatric: reports: Judgement Intact, Mood/Affect Appropiate, Anxious Other Systems: Reviewed and Negative Patient History - Patient Medical History Hx Anemia: No Hx Asthma: No Hx Chronic Obstructive Pulmonary Disease (COPD): No Hx Cancer: No Hx Cardiac Disorders: No Hx Congestive Heart Failure: No Hx Hypertension: No Hx Hypercholesterolemia: No Hx Pacemaker: No HX Cerebrovascular Accident: No Hx Seizures: No Hx Dementia: No Hx Diabetes: No Hx Gastrointestinal Disorders: No Hx Liver Disease: No Hx Genitourinary Disorders: No Hx Sexually Transmitted Disorders: No Hx Renal Disease (ESRD): No Hx Thyroid Disease: No Hx Human Immunodeficiency Virus (HIV): No Hx Hepatitis C: No Hx Depression: Yes (with anxiety, never meds, never hospitalized) Hx Suicide Attempt: No Hx Bipolar Disorder: No Hx Schizophrenia: No - Patient Surgical History Past Surgical History: No Hx Neurologic Surgery: No Hx Cataract Extraction: No Hx Cardiac Surgery: No Hx Lung Surgery: No Hx Breast Surgery: No Hx Breast Biopsy: No Hx Abdominal Surgery: No Hx Appendectomy: No Hx Cholecystectomy: No Hx Genitourinary Surgery: No Hx Section: No Hx Orthopedic Surgery: No Anesthesia Reaction: (n/a) - PPD History Previous Implant?: Yes Documented Results: Negative w/proof Implanted On Prior R Admission?: Yes Date: 09/07/16 Results: 0mm PPD to be Administered?: Yes - Reproductive History Patient is a Female of Child Bearing Age (11 -55 yrs old): No - Smoking Cessation Smoking history: Current every day smoker Have you smoked in the past 12 months: Yes Aproximately how many cigarettes per day: 7 Cigars Per Day: 0 Hx Chewing Tobacco Use: No Initiated information on smoking cessation: Yes 'Breaking Loose' booklet given: 04/06/19 (t-1) - Substance & Tx. History Hx Alcohol Use: Yes Hx Substance Use: Yes Substance Use Type: Alcohol, Heroin, Marijuana Hx Substance Use Treatment: Yes (detox, rehab) - Substances abused Alcohol Substance route: Oral Amount used: 2pints of Vodka/ 5 8oz beers Age of first use: 15 Date of last use: 04/06/19 Oxycontin Other (specify): Percocet Substance route: Oral Frequency: 1-2 times per week Amount used: 30mg Age of first use: 20 Date of last use: 03/16/19 Methamphetamine Other (specify): ecstasy Substance route: Oral Frequency: 3-6 times per week Amount used: 3 pills Age of first use: 22 Date of last use: 04/04/19 Marijuana/Hashish Substance route: Smoking Frequency: 1-3 times last 30 days Amount used: 1 joint Age of first use: 15 Date of last use: 04/05/19 Alprazolam (Xanax) Substance route: Oral Frequency: 1-2 times per week Amount used: two 2mg ovals Age of first use: 22 Date of last use: 04/04/19 Other Other (specify): Percocet Substance route: Oral Frequency: 3-6 times per week Amount used: 30mg Age of first use: 20 Date of last use: 03/29/19 Family Disease History - Family Disease History Family Disease History: CA: Grandparent, Respiratory: Sister (2 - living - etoh and asthma), Other: Father (living, etoh), Mother (living, etoh), Brother (2 - living - etoh), Daughter (age 2 - healthy) Admission Physical Exam S - Vital Signs Vital Signs: Vital Signs - 24 hr 04/06/19 04/06/19 12:48 13:08 Temperature 98.3 F 98.3 F Pulse Rate 106 H 106 H Respiratory 16 16 Rate Blood Pressure 107/74 107/74 - Physical General Appearance: Yes: Nourished, Appropriately Dressed, Moderate Distress, Thin, Tremorous, Anxious HEENTM: Yes: EOMI, Hearing grossly Normal, Normocephalic, Normal Voice, Pharynx Normal Respiratory: Yes: Normal Breath Sounds, No Respiratory Distress Neck: Yes: No masses,lesions,Nodules Breast: Yes: Breast Exam Deferred Cardiology: Yes: Regular Rhythm, Regular Rate Abdominal: Yes: Flat, Soft Genitourinary: Yes: Frequency Back: Yes: Normal Inspection Musculoskeletal: Yes: full range of Motion, Gait Steady Extremities: Yes: Normal Inspection, Normal Range of Motion, Non-Tender, Tremors Neurological: Yes: Fully Oriented, Alert, Motor Strength 5/5, Normal Mood/Affect , Normal Response Integumentary: Yes: Normal Color, Dry, Warm Lymphatic: Yes: Within Normal Limits - Diagnostic (1) Alcohol dependence with uncomplicated withdrawal Current Visit: Yes Status: Acute (2) Methamphetamine dependence Current Visit: Yes Status: Chronic (3) Nicotine dependence Current Visit: Yes Status: Acute Qualifiers: Nicotine product type: cigarettes Substance use status: in withdrawal Qualified Code(s): F17.213 - Nicotine dependence, cigarettes, with withdrawal (4) Weight loss Current Visit: Yes Status: Chronic (5) Marijuana use Current Visit: Yes Status: Chronic (6) Opiate abuse, episodic Current Visit: Yes Status: Chronic Cleared for Admission [facility] - Detox or Rehab [facility] Level of Care: Medically Managed Detox Regimen/Protocol: Librium Breathalyzer - Breathalyzer Breathalyzer: 0.144 Urine Drug Screen - Test Device Lot number: [id number] Expiration date: 01/04/21 - Control Is test valid?: Yes - Results Drug screen NEGATIVE: No Urine drug screen results: THC-Marijuana, MET-Methamphetamine, AMP-Amphetamines , BZO-Benzodiazepines Inpatient Rehab Admission - Rehab Decision to Admit Inpatient rehab admission?: No
[2019-04-06] MEDS ORDERED: MENTHOL/PHENOL 1 EACH UD MM PRN (14:00)
[2019-04-06] MEDS ORDERED: IBUPROFEN 400 MG TABLET (FP) PO PRN (14:00)
[2019-04-06] MEDS ORDERED: MAG HYDROX/AL HYDROX/SIMETH 30 ML UNIT-DOSE CUP PO PRN (14:00)
[2019-04-06] MEDS ORDERED: MELATONIN 5 MG TABLETS PO PRN (14:00)
[2019-04-06] MEDS ORDERED: hydrOXYzine PAMOATE 25 MG CAPSULE (FP) PO PRN (14:00)
[2019-04-06] MEDS ORDERED: MAGNESIUM CITRATE 300 ML BOTTLE PO PRN (14:00)
[2019-04-06] MEDS ORDERED: ACETAMINOPHEN 325 MG TABLET (FP) PO PRN ×2 (14:00)
[2019-04-06] MEDS ORDERED: MAGNESIUM HYDROX 2400MG/30ML ORAL SUSPENSION 30 ML CUP PO PRN (14:00)
[2019-04-06] MEDS ORDERED: BISMUTH SUBSALICYLATE 524 MG/30 ML UD PO PRN (14:00)
[2019-04-06] MEDS ORDERED: METHOCARBAMOL 500 MG TABLET PO PRN (14:00)
[2019-04-06] MEDS ORDERED: chlordiazePOXIDE HCL 25 MG CAPSULE PO PRN (14:00)
[2019-04-06] MEDS: chlordiazePOXIDE HCL 25 MG CAPSULE PO SCH ×2 (17:24→22:29)
[2019-04-06] MEDS: THIAMINE HCL 100 MG TABLET (FP) PO SCH (22:29)
[2019-04-07] MEDS: chlordiazePOXIDE HCL 25 MG CAPSULE PO SCH ×4 (05:50→22:49)
[2019-04-07] MEDS: PRENATAL VITAMINS W/ FOLIC ACID TABLET (FP) PO SCH (10:29)
[2019-04-07 12:05] LABS: CALCIUM 9.8 mg/dL (8.5-10.1); CREATININE 0.9 mg/dL (0.55-1.3); TOT PROT 7.4 g/dl (6.4-8.2)
[2019-04-07 12:19] LABS: HEMATOCRIT 46.6 % (35.4-49); HEMOGLOBIN 15.8 GM/dL (11.7-16.9); MCH 31.2 pg (25.7-33.7); MCHC 33.8 g/dl (32.0-35.9); MEAN CELL VOLUME 92.3 fl (80-96); MEAN PLT VOLUME 8.4 fl (7.5-11.1); PLATELET COUNT 295 K/MM3 (134-434); RBC 5.05 M/mm3 (4.00-5.60); RDW 13.5 % (11.9-15.9); WHITE BLOOD COUNT 4.6 K/mm3 (4.0-10.0)
--- NOTE | 2019-04-07 13:33 | PN ---
S CIWA - CIWA Score Nausea/Vomitin-Mild Nausea/No Vomiting Muscle Tremors: 4-Moderate,w/Arms Extend Anxiety: 4-Mod. Anxious/Guarded Agitation: 3 Paroxysmal Sweats: 2 Orientation: 0-Oriented Tacttile Disturbances: 0-None Auditory Disturbances: 0-None Visual Disturbances: 0-None Headache: 0-None Present CIWA-Ar Total Score: 14 S Progress Note (SOAP) Subjective: 28 years old male first patient [facility] admission since 2017 was admitted on 04/06/19 for alcohol withdrawal sx management doing well [facility] libirum detox regimen resting on bed feeling tired low energy limited conversation with staff prefers to stay in bed resting today Objective: 04/07/19 13:34 Vital Signs Temperature 98.7 F 04/07/19 09:46 Pulse Rate 83 04/07/19 09:46 Respiratory Rate 18 04/07/19 09:46 Blood Pressure 117/75 04/07/19 09:46 O2 Sat by Pulse Oximetry (%) Laboratory Last Values WBC 4.6 K/mm3 (4.0-10.0) 04/07/19 07:30 RBC 5.05 M/mm3 (4.00-5.60) 04/07/19 07:30 Hgb 15.8 GM/dL (11.7-16.9) 04/07/19 07:30 Hct 46.6 % (35.4-49) 04/07/19 07:30 MCV 92.3 fl (80-96) 04/07/19 07:30 MCH 31.2 pg (25.7-33.7) 04/07/19 07:30 MCHC 33.8 g/dl (32.0-35.9) 04/07/19 07:30 RDW 13.5 % (11.9-15.9) 04/07/19 07:30 Plt Count 295 K/MM3 (134-434) 04/07/19 07:30 MPV 8.4 fl (7.5-11.1) 04/07/19 07:30 Sodium 139 mmol/L (136-145) 04/07/19 07:30 Potassium 4.0 mmol/L (3.5-5.1) 04/07/19 07:30 Chloride 102 mmol/L (98-107) 04/07/19 07:30 Carbon Dioxide 30 mmol/L (21-32) 04/07/19 07:30 Anion Gap 7 MMOL/L (8-16) L 04/07/19 07:30 BUN 16.0 mg/dL (7-18) 04/07/19 07:30 Creatinine 0.9 mg/dL (0.55-1.3) 04/07/19 07:30 Est GFR (CKD-EPI)AfAm 136.14 04/07/19 07:30 Est GFR (CKD-EPI)NonAf 117.46 04/07/19 07:30 Random Glucose 87 mg/dL (74-106) 04/07/19 07:30 Calcium 9.8 mg/dL (8.5-10.1) 04/07/19 07:30 Total Bilirubin 1.0 mg/dL (0.2-1) 04/07/19 07:30 AST 18 U/L (15-37) 04/07/19 07:30 ALT 17 U/L (13-61) 04/07/19 07:30 Alkaline Phosphatase 105 U/L (45-117) 04/07/19 07:30 Total Protein 7.4 g/dl (6.4-8.2) 04/07/19 07:30 Albumin 4.0 g/dl (3.4-5.0) 04/07/19 07:30 RPR Titer Nonreactive (NONREACTIVE) 04/07/19 07:30 lab noted Assessment: 04/07/19 13:35 alcohol withdrawal sx alert no dizziness no shortness of breath Plan: continue librium detox regimen
--- NOTE | 2019-04-07 16:03 | CONSULT ---
[facility] Psychiatric Consult - Data Date of interview: 04/07/19 Admission source: [facility] Identifying data: Patient is a 28 year old single male, father of one, unemployed, domiciled, and is supported by food stamps. This is one of multiple admissions for patient. Patient admitted to for alcohol, opiate, methamphetamine dependence. Substance Abuse History: Smoking Cessation. Smoking history: Current every day smoker. Have you smoked in the past 12 months: Yes. Aproximately how many cigarettes per day: 7. Cigars Per Day: 0. Hx Chewing Tobacco Use: No. Initiated information on smoking cessation: Yes. 'Breaking Loose' booklet given : 04/06/19 (t-1). - Substance & Tx. History. Hx Alcohol Use: Yes. Hx Substance Use: Yes. Substance Use Type: Alcohol, Heroin, Marijuana. Hx Substance Use Treatment: Yes (detox, rehab). - Substances abused. Alcohol. Substance route: Oral. Amount used: 2pints of Vodka/ 5 8oz beers. Age of first use: 15. Date of last use: 04/06/19. Oxycontin. Other (specify): Percocet. Substance route: Oral. Frequency: 1-2 times per week. Amount used: 30mg. Age of first use: 20. Date of last use: 03/16/19. Methamphetamine. Other (specify): ecstasy. Substance route: Oral. Frequency: 3-6 times per week. Amount used: 3 pills. Age of first use: 22. Date of last use: . Marijuana/Hashish. Substance route: Smoking. Frequency: 1-3 times last 30 days. Amount used: 1 joint. Age of first use: 15. Date of last use: 04/05/19. Alprazolam (Xanax). Substance route: Oral. Frequency: 1-2 times per week. Amount used: two 2mg ovals. Age of first use: 22. Date of last use : 04/04/19. Other. Other (specify): Percocet. Substance route: Oral. Frequency: 3-6 times per week. Amount used: 30mg. Age of first use: 20. Date of last use: 03/29/19 Medical History: denies. Psychiatric History: Patient denies h/o psychiatric hospitalization and suicide attempt. Reports his first psychiatric contact was a couple months ago at an outpatient clinic on [address] [place] [address]. States he was prescribed medication due to his history of alcohol dependence (naltrexone, campral??) although is unsure of the name of the medication. At present patient reports feeling fatigue and is experiencing difficulty sleeping. Physical/Sexual Abuse/Trauma History: denies. Mental Status Exam - Mental Status Exam Alert and Oriented to: Time, Place, Person Cognitive Function: Good Patient Appearance: Well Groomed Mood: Withdrawn Affect: Mood Congruent Patient Behavior: Fatigued Speech Pattern: Appropriate Voice Loudness: Moderately Soft/Quiet Thought Process: Goal Oriented Thought Disorder: Not Present Hallucinations: Denies Suicidal Ideation: Denies Homicidal Ideation: Denies Insight/Judgement: Poor Sleep: Poorly Appetite: Fair Muscle strength/Tone: Normal Gait/Station: Normal Psychiatric Findings - Problem List ([place] 1, 2,3) (1) Alcohol dependence with uncomplicated withdrawal Current Visit: Yes Status: Acute (2) Methamphetamine dependence Current Visit: Yes Status: Chronic (3) Opiate abuse, episodic Current Visit: Yes Status: Chronic (4) Substance induced mood disorder Current Visit: No Status: Acute (5) Substance-induced sleep disorder Current Visit: Yes Status: Acute - Initial Treatment Plan Initial Treatment Plan: Psychoeducation provided. Detoxification in progress. Will d/c melatonin 5mg and order Melatonin 10mg HS. Benefits and side effects discussed. Verbal consent given.
[2019-04-07] MEDS: THIAMINE HCL 100 MG TABLET (FP) PO SCH (22:49)
[2019-04-07] MEDS: MELATONIN 5 MG TABLETS PO PRN (22:49)
[2019-04-08] MEDS: chlordiazePOXIDE HCL 25 MG CAPSULE PO SCH ×4 (06:31→22:10)
[2019-04-08] MEDS: PRENATAL VITAMINS W/ FOLIC ACID TABLET (FP) PO SCH (10:20)
--- NOTE | 2019-04-08 12:00 | PN ---
[facility] CIWA - CIWA Score Nausea/Vomitin-Mild Nausea/No Vomiting Muscle Tremors: 3 Anxiety: 3 Agitation: 2 Paroxysmal Sweats: 2 Orientation: 0-Oriented Tacttile Disturbances: 0-None Auditory Disturbances: 0-None Visual Disturbances: 0-None Headache: 0-None Present CIWA-Ar Total Score: 11 S Progress Note (SOAP) Subjective: 28 years old male admitted on 04/06/19 for alcohol withdrawal sx management doing well with librium detox regimen resting on bed after lunch alert oriented x 3 speech clearly coherently social with peers in day room patient prefers to go to [facility] Objective: 04/08/19 12:19 Vital Signs Temperature 97.4 F L 04/08/19 09:14 Pulse Rate 88 04/08/19 09:14 Respiratory Rate 18 04/08/19 09:14 Blood Pressure 97/68 04/08/19 09:14 O2 Sat by Pulse Oximetry (%) Laboratory Last Values WBC 4.6 K/mm3 (4.0-10.0) 04/07/19 07:30 RBC 5.05 M/mm3 (4.00-5.60) 04/07/19 07:30 Hgb 15.8 GM/dL (11.7-16.9) 04/07/19 07:30 Hct 46.6 % (35.4-49) 04/07/19 07:30 MCV 92.3 fl (80-96) 04/07/19 07:30 MCH 31.2 pg (25.7-33.7) 04/07/19 07:30 MCHC 33.8 g/dl (32.0-35.9) 04/07/19 07:30 RDW 13.5 % (11.9-15.9) 04/07/19 07:30 Plt Count 295 K/MM3 (134-434) 04/07/19 07:30 MPV 8.4 fl (7.5-11.1) 04/07/19 07:30 Sodium 139 mmol/L (136-145) 04/07/19 07:30 Potassium 4.0 mmol/L (3.5-5.1) 04/07/19 07:30 Chloride 102 mmol/L (98-107) 04/07/19 07:30 Carbon Dioxide 30 mmol/L (21-32) 04/07/19 07:30 Anion Gap 7 MMOL/L (8-16) L 04/07/19 07:30 BUN 16.0 mg/dL (7-18) 04/07/19 07:30 Creatinine 0.9 mg/dL (0.55-1.3) 04/07/19 07:30 Est GFR (CKD-EPI)AfAm 136.14 04/07/19 07:30 Est GFR (CKD-EPI)NonAf 117.46 04/07/19 07:30 Random Glucose 87 mg/dL (74-106) 04/07/19 07:30 Calcium 9.8 mg/dL (8.5-10.1) 04/07/19 07:30 Total Bilirubin 1.0 mg/dL (0.2-1) 04/07/19 07:30 AST 18 U/L (15-37) 04/07/19 07:30 ALT 17 U/L (13-61) 04/07/19 07:30 Alkaline Phosphatase 105 U/L (45-117) 04/07/19 07:30 Total Protein 7.4 g/dl (6.4-8.2) 04/07/19 07:30 Albumin 4.0 g/dl (3.4-5.0) 04/07/19 07:30 RPR Titer Nonreactive (NONREACTIVE) 04/07/19 07:30 lab noted encourage oral fluid Assessment: 04/08/19 12:29 alcohol withdrawal sx alert no acute distress Plan: continue librium detox regimen
[2019-04-08] MEDS: MELATONIN 5 MG TABLETS PO PRN (22:10)
[2019-04-08] MEDS: THIAMINE HCL 100 MG TABLET (FP) PO SCH (22:10)
[2019-04-09] MEDS ORDERED: chlordiazePOXIDE HCL 10 MG CAPSULE PO PRN
[2019-04-09] MEDS: chlordiazePOXIDE HCL 10 MG CAPSULE PO SCH ×4 (05:39→22:16)
[2019-04-09] MEDS: PRENATAL VITAMINS W/ FOLIC ACID TABLET (FP) PO SCH (10:17)
--- NOTE | 2019-04-09 13:12 | PN ---
S CIWA - CIWA Score Nausea/Vomitin-Mild Nausea/No Vomiting Muscle Tremors: 2 Anxiety: 2 Agitation: 2 Paroxysmal Sweats: 1-Minimal Palms Moist Orientation: 0-Oriented Tacttile Disturbances: 0-None Auditory Disturbances: 0-None Visual Disturbances: 0-None Headache: 0-None Present CIWA-Ar Total Score: 8 S Progress Note (SOAP) Subjective: 28 years old male 1st patient [facility] admission since 2017 was admitted on 04/06/19 for acute alcohol withdrawal sx management doing well with librium detox regimen alert speech clearly ambulating on hallway less tremor Objective: 04/09/19 13:19 Vital Signs Temperature 96.8 F L 04/09/19 09:16 Pulse Rate 83 04/09/19 09:16 Respiratory Rate 18 04/09/19 09:16 Blood Pressure 109/72 04/09/19 09:16 O2 Sat by Pulse Oximetry (%) Laboratory Last Values WBC 4.6 K/mm3 (4.0-10.0) 04/07/19 07:30 RBC 5.05 M/mm3 (4.00-5.60) 04/07/19 07:30 Hgb 15.8 GM/dL (11.7-16.9) 04/07/19 07:30 Hct 46.6 % (35.4-49) 04/07/19 07:30 MCV 92.3 fl (80-96) 04/07/19 07:30 MCH 31.2 pg (25.7-33.7) 04/07/19 07:30 MCHC 33.8 g/dl (32.0-35.9) 04/07/19 07:30 RDW 13.5 % (11.9-15.9) 04/07/19 07:30 Plt Count 295 K/MM3 (134-434) 04/07/19 07:30 MPV 8.4 fl (7.5-11.1) 04/07/19 07:30 Sodium 139 mmol/L (136-145) 04/07/19 07:30 Potassium 4.0 mmol/L (3.5-5.1) 04/07/19 07:30 Chloride 102 mmol/L (98-107) 04/07/19 07:30 Carbon Dioxide 30 mmol/L (21-32) 04/07/19 07:30 Anion Gap 7 MMOL/L (8-16) L 04/07/19 07:30 BUN 16.0 mg/dL (7-18) 04/07/19 07:30 Creatinine 0.9 mg/dL (0.55-1.3) 04/07/19 07:30 Est GFR (CKD-EPI)AfAm 136.14 04/07/19 07:30 Est GFR (CKD-EPI)NonAf 117.46 04/07/19 07:30 Random Glucose 87 mg/dL (74-106) 04/07/19 07:30 Calcium 9.8 mg/dL (8.5-10.1) 04/07/19 07:30 Total Bilirubin 1.0 mg/dL (0.2-1) 04/07/19 07:30 AST 18 U/L (15-37) 04/07/19 07:30 ALT 17 U/L (13-61) 04/07/19 07:30 Alkaline Phosphatase 105 U/L (45-117) 04/07/19 07:30 Total Protein 7.4 g/dl (6.4-8.2) 04/07/19 07:30 Albumin 4.0 g/dl (3.4-5.0) 04/07/19 07:30 RPR Titer Nonreactive (NONREACTIVE) 04/07/19 07:30 lab noted Assessment: 04/09/19 13:19 alcohol withdrawal sx speech coherently 04/09/19 13:20 irregular heart rate discuss cardiac problem related amphetamine abuse 04/09/19 13:21 Plan: continue librium detox regimen
[2019-04-09] MEDS: THIAMINE HCL 100 MG TABLET (FP) PO SCH (22:16)
[2019-04-09] MEDS: MELATONIN 5 MG TABLETS PO PRN (22:16)
[2019-04-10] MEDS: chlordiazePOXIDE HCL 10 MG CAPSULE PO SCH ×2 (05:46→17:24)
[2019-04-10] MEDS: PRENATAL VITAMINS W/ FOLIC ACID TABLET (FP) PO SCH (10:25)
--- NOTE | 2019-04-10 11:03 | PN ---
[facility] CIWA - CIWA Score Nausea/Vomitin-No Nausea/No Vomiting Muscle Tremors: 2 Anxiety: 2 Agitation: 1-Slight > Activity Paroxysmal Sweats: No Perspiration Orientation: 0-Oriented Tacttile Disturbances: 0-None Auditory Disturbances: 0-None Visual Disturbances: 0-None Headache: 0-None Present CIWA-Ar Total Score: 5 S Progress Note (SOAP) Subjective: doing well with libirum detox regimen ate breakfast showered discuss aftercare with staff include option of nalrexon Objective: 04/10/19 11:11 Vital Signs Temperature 96 F L 04/10/19 09:08 Pulse Rate 72 04/10/19 09:08 Respiratory Rate 20 04/10/19 09:08 Blood Pressure 102/73 04/10/19 09:08 O2 Sat by Pulse Oximetry (%) Laboratory Last Values WBC 4.6 K/mm3 (4.0-10.0) 04/07/19 07:30 RBC 5.05 M/mm3 (4.00-5.60) 04/07/19 07:30 Hgb 15.8 GM/dL (11.7-16.9) 04/07/19 07:30 Hct 46.6 % (35.4-49) 04/07/19 07:30 MCV 92.3 fl (80-96) 04/07/19 07:30 MCH 31.2 pg (25.7-33.7) 04/07/19 07:30 MCHC 33.8 g/dl (32.0-35.9) 04/07/19 07:30 RDW 13.5 % (11.9-15.9) 04/07/19 07:30 Plt Count 295 K/MM3 (134-434) 04/07/19 07:30 MPV 8.4 fl (7.5-11.1) 04/07/19 07:30 Sodium 139 mmol/L (136-145) 04/07/19 07:30 Potassium 4.0 mmol/L (3.5-5.1) 04/07/19 07:30 Chloride 102 mmol/L (98-107) 04/07/19 07:30 Carbon Dioxide 30 mmol/L (21-32) 04/07/19 07:30 Anion Gap 7 MMOL/L (8-16) L 04/07/19 07:30 BUN 16.0 mg/dL (7-18) 04/07/19 07:30 Creatinine 0.9 mg/dL (0.55-1.3) 04/07/19 07:30 Est GFR (CKD-EPI)AfAm 136.14 04/07/19 07:30 Est GFR (CKD-EPI)NonAf 117.46 04/07/19 07:30 Random Glucose 87 mg/dL (74-106) 04/07/19 07:30 Calcium 9.8 mg/dL (8.5-10.1) 04/07/19 07:30 Total Bilirubin 1.0 mg/dL (0.2-1) 04/07/19 07:30 AST 18 U/L (15-37) 04/07/19 07:30 ALT 17 U/L (13-61) 04/07/19 07:30 Alkaline Phosphatase 105 U/L (45-117) 04/07/19 07:30 Total Protein 7.4 g/dl (6.4-8.2) 04/07/19 07:30 Albumin 4.0 g/dl (3.4-5.0) 04/07/19 07:30 RPR Titer Nonreactive (NONREACTIVE) 04/07/19 07:30 lab noted Assessment: 04/10/19 11:12 alcohol withdrawal sx patient is alert oriented x 3 04/10/19 11:13 denies cardiac palpitation denies chest pain no shortness of breath Plan: continue libirum detox regimen
--- NOTE | 2019-04-10 17:58 | PN ---
[facility] Progress Note Note: Psychiatry Attending's note : Approached by patient. Complaint : insomnia. Melatonin not effective. Discussed with patient : sleep hygiene principles selection of hypnotic medications. Mr Rascon indicates his preference for quetiapine. Side effects/benefits revisited (metabolic syndrome, sedation). Patient consents (verbally) to start with seroquel 100 mg po hs. Will follow.
[2019-04-10] MEDS ORDERED: QUEtiapine FUMARATE 100 MG TABLET (FP) PO SCH (22:00)
[2019-04-10] MEDS: MELATONIN 5 MG TABLETS PO PRN (22:16)
[2019-04-10] MEDS: THIAMINE HCL 100 MG TABLET (FP) PO SCH (22:16)
[2019-04-11] MEDS ORDERED: chlordiazePOXIDE HCL 10 MG CAPSULE PO ONE (05:00)
[2019-04-11 09:19] VITALS: BP 96/68; PULSE 106; TEMP 97.3
[2019-04-11] MEDS: PRENATAL VITAMINS W/ FOLIC ACID TABLET (FP) PO SCH (10:17)
--- NOTE | 2019-04-11 13:50 | DS ---
[facility] Detox Discharge Summary Admission Date: 04/06/19 Discharge Date: 04/11/19 - History Present History: Alcohol Dependence, Cannabis Dependence, Opioid Dependence Additional Comments: PATIENT GOING TO [facility] ([facility]) FOR AFTERCARE. PATIENT WAS DISCHARGED FROM DETOX UNIT TO BE TAKEN OVER TO REHAB UNIT IN STABLE MEDICAL CONDITION. Pertinent Past History: Depression, Weight Loss, Nicotine dependence, Methamphetamine Abuse. - Physical Exam Results Vital Signs: Vital Signs Temperature 97.3 F L 04/11/19 09:19 Pulse Rate 106 H 04/11/19 09:19 Respiratory Rate 18 04/11/19 09:19 Blood Pressure 96/68 04/11/19 09:19 O2 Sat by Pulse Oximetry (%) Pertinent Admission Physical Exam Findings: WITHDRAWAL SYMPTOMS. Laboratory Tests 04/07/19 04/07/19 04/07/19 07:30 07:30 07:30 WBC 4.6 RBC 5.05 Hgb 15.8 Hct 46.6 MCV 92.3 MCH 31.2 MCHC 33.8 RDW 13.5 Plt Count 295 MPV 8.4 Sodium 139 Potassium 4.0 Chloride 102 Carbon Dioxide 30 Anion Gap 7 L BUN 16.0 Creatinine 0.9 Est GFR (CKD-EPI)AfAm 136.14 Est GFR (CKD-EPI)NonAf 117.46 Random Glucose 87 Calcium 9.8 Total Bilirubin 1.0 AST 18 ALT 17 Alkaline Phosphatase 105 Total Protein 7.4 Albumin 4.0 RPR Titer TB (QFT) Incubation TB Test (QFT) Nil 0.17 TB Test (QFT) Mitogen >10.00 TB Test (QFT) Antigen 0.17 TB Test (QFT) Negative TB Positive Criteria 04/07/19 07:30 WBC RBC Hgb Hct MCV MCH MCHC RDW Plt Count MPV Sodium Potassium Chloride Carbon Dioxide Anion Gap BUN Creatinine Est GFR (CKD-EPI)AfAm Est GFR (CKD-EPI)NonAf Random Glucose Calcium Total Bilirubin AST ALT Alkaline Phosphatase Total Protein Albumin RPR Titer Nonreactive TB (QFT) Incubation TB Test (QFT) Nil TB Test (QFT) Mitogen TB Test (QFT) Antigen TB Test (QFT) TB Positive Criteria LABS NOTED. - Treatment Hospital Course: Detox Protocol Followed, Detoxed Safely, Responded well, Discharged Condition Good, Rehab Referral Accepted Patient has Accepted a Rehab Referral to: [facility] ([place], [place]). - Medication Discharge Medications: Ambulatory Orders Quetiapine Fumarate [Seroquel] 100 tab PO HS 04/11/19 - Diagnosis (1) Alcohol dependence with uncomplicated withdrawal Status: Acute (2) Nicotine dependence Status: Acute Qualifiers: Nicotine product type: cigarettes Substance use status: in withdrawal Qualified Code(s): F17.213 - Nicotine dependence, cigarettes, with withdrawal (3) Marijuana use Status: Chronic (4) Methamphetamine dependence Status: Chronic (5) Opiate abuse, episodic Status: Chronic (6) Weight loss Status: Chronic (7) Substance induced mood disorder Status: Acute (8) Substance-induced sleep disorder Status: Acute - AMA Did Patient Leave Against Medical Advice: No [facility] CIWA - CIWA Score Nausea/Vomitin-No Nausea/No Vomiting Muscle Tremors: None Anxiety: 1-Mildly Anxious Agitation: 1-Slight > Activity Paroxysmal Sweats: No Perspiration Orientation: 0-Oriented Tacttile Disturbances: 0-None Auditory Disturbances: 0-None Visual Disturbances: 0-None Headache: 0-None Present CIWA-Ar Total Score: 2
== END 2019-04-11 12:06 | disposition other institution (70) | DRG 773 ==
LOC: YASAS 12:00 → Y3N 14:24
PROVIDERS: ADMIT Surgery; ATTEND Surgery
PROC: HZ2ZZZZ Detoxification Services for Substance Abuse Treatment (ICD-10-PCS; principal; 2019-04-06)
DX: F10.230 Alcohol dependence with withdrawal, uncomplicated (principal); F15.20 Other stimulant dependence, uncomplicated; F11.10 Opioid abuse, uncomplicated; F12.90 Cannabis use, unspecified, uncomplicated; F17.213 Nicotine dependence, cigarettes, with withdrawal; F19.24 Other psychoactive substance dependence with psychoactive substance-induced mood disorder; F19.282 Other psychoactive substance dependence with psychoactive substance-induced sleep disorder; R63.4 Abnormal weight loss
CPT/HCPCS: 36415; 80053; 85027; 86480; 86593

== ENCOUNTER 2019-04-11 12:14 | Inpatient (IN) | payer OTHER ==
[2019-04-11] MEDS ORDERED: MENTHOL/PHENOL 1 EACH UD MM PRN (13:54)
[2019-04-11] MEDS ORDERED: P-EPHED 60MG/TRIPROLIDI 2.5MG TABLET PO PRN (13:54)
[2019-04-11] MEDS ORDERED: IBUPROFEN 400 MG TABLET (FP) PO PRN (13:54)
[2019-04-11] MEDS ORDERED: guaiFENesin 200 MG/10 ML 10 ML UNIT-DOSE CUPS PO PRN (13:54)
[2019-04-11] MEDS ORDERED: MAGNESIUM CITRATE 300 ML BOTTLE PO PRN (13:54)
[2019-04-11] MEDS ORDERED: MAG HYDROX/AL HYDROX/SIMETH 30 ML UNIT-DOSE CUP PO PRN (13:54)
[2019-04-11] MEDS ORDERED: ACETAMINOPHEN 325 MG TABLET (FP) PO PRN (13:54)
[2019-04-11] MEDS ORDERED: LOPERAMIDE HCL 2 MG CAPSULE PO PRN (13:54)
[2019-04-11] MEDS ORDERED: MAGNESIUM HYDROX 2400MG/30ML ORAL SUSPENSION 30 ML CUP PO PRN (13:54)
--- NOTE | 2019-04-11 13:57 | HP ---
[facility] Re[facility] Assess/Revision - Admission History Admitted to Rehab from: [facility] Date of Admission to Rehab: 04/11/2019 - Vital signs Vital Signs: Vital Signs Period Temp Pulse Resp BP Sys/Dang Pulse Ox Last 24 Hr 98 F 85 18 105/70 - Findings Detox History & Physical reviewed: Yes Concur with findings: Yes Comments/Additional Findings: PATIENT'S MEDICAL / MEDICATION HISTORY REVIEWED PRIOR TO DISCHARGE FROM DETOX UNIT. PATIENT WAS DISCHARGED FROM DETOX UNIT TO BE TAKEN OVER TO REHAB UNIT IN STABLE MEDICAL CONDITION. Inpatient Rehab Admission - Rehab Decision to Admit Inpatient rehab admission?: Yes - Initial Determination Are CD services needed?: Yes Free of communicable disease: Yes Not in need of hospitalization: Yes - Rehab Admission Criteria Previous failed treatment: Yes Poor recovery environment: Yes Comorbidities: Yes Lacks judgement: No Patient is meeting Inpatient Rehab admission criteria:: Yes
[2019-04-11] MEDS: QUEtiapine FUMARATE 100 MG TABLET (FP) PO SCH (21:03)
[2019-04-11] MEDS: MELATONIN 5 MG TABLETS PO PRN (21:03)
[2019-04-11] MEDS: THIAMINE HCL 100 MG TABLET (FP) PO SCH (21:03)
[2019-04-12] MEDS: PRENATAL VITAMINS W/ FOLIC ACID TABLET (FP) PO SCH (09:55)
[2019-04-12] MEDS: QUEtiapine FUMARATE 100 MG TABLET (FP) PO SCH (21:06)
[2019-04-12] MEDS: THIAMINE HCL 100 MG TABLET (FP) PO SCH (21:06)
[2019-04-12] MEDS: MELATONIN 5 MG TABLETS PO PRN (21:07)
[2019-04-13] MEDS: PRENATAL VITAMINS W/ FOLIC ACID TABLET (FP) PO SCH (10:03)
[2019-04-13] MEDS: QUEtiapine FUMARATE 100 MG TABLET (FP) PO SCH (21:35)
[2019-04-13] MEDS: MELATONIN 5 MG TABLETS PO PRN (21:35)
[2019-04-13] MEDS: THIAMINE HCL 100 MG TABLET (FP) PO SCH (21:36)
[2019-04-14] MEDS: PRENATAL VITAMINS W/ FOLIC ACID TABLET (FP) PO SCH (09:41)
[2019-04-14] MEDS: QUEtiapine FUMARATE 100 MG TABLET (FP) PO SCH (21:13)
[2019-04-14] MEDS: THIAMINE HCL 100 MG TABLET (FP) PO SCH (21:13)
[2019-04-14] MEDS: MELATONIN 5 MG TABLETS PO PRN (21:13)
[2019-04-15] MEDS: PRENATAL VITAMINS W/ FOLIC ACID TABLET (FP) PO SCH (10:14)
[2019-04-15] MEDS: THIAMINE HCL 100 MG TABLET (FP) PO SCH (21:01)
[2019-04-15] MEDS: QUEtiapine FUMARATE 100 MG TABLET (FP) PO SCH (21:01)
[2019-04-15] MEDS: MELATONIN 5 MG TABLETS PO PRN (21:02)
[2019-04-16] MEDS: PRENATAL VITAMINS W/ FOLIC ACID TABLET (FP) PO SCH (10:18)
[2019-04-16] MEDS: QUEtiapine FUMARATE 100 MG TABLET (FP) PO SCH (21:07)
[2019-04-16] MEDS: MELATONIN 5 MG TABLETS PO PRN (21:08)
[2019-04-16] MEDS: THIAMINE HCL 100 MG TABLET (FP) PO SCH (21:08)
[2019-04-17] MEDS: PRENATAL VITAMINS W/ FOLIC ACID TABLET (FP) PO SCH (10:21)
[2019-04-17] MEDS: MELATONIN 5 MG TABLETS PO PRN (21:39)
[2019-04-17] MEDS: QUEtiapine FUMARATE 100 MG TABLET (FP) PO SCH (21:39)
[2019-04-17] MEDS: THIAMINE HCL 100 MG TABLET (FP) PO SCH (21:39)
[2019-04-18] MEDS: PRENATAL VITAMINS W/ FOLIC ACID TABLET (FP) PO SCH (10:06)
[2019-04-18] MEDS: THIAMINE HCL 100 MG TABLET (FP) PO SCH (21:08)
[2019-04-18] MEDS: QUEtiapine FUMARATE 100 MG TABLET (FP) PO SCH (21:08)
[2019-04-18] MEDS: MELATONIN 5 MG TABLETS PO PRN (21:08)
[2019-04-19] MEDS: PRENATAL VITAMINS W/ FOLIC ACID TABLET (FP) PO SCH (09:52)
[2019-04-19] MEDS: MELATONIN 5 MG TABLETS PO PRN (21:36)
[2019-04-19] MEDS: QUEtiapine FUMARATE 100 MG TABLET (FP) PO SCH (21:36)
[2019-04-19] MEDS: THIAMINE HCL 100 MG TABLET (FP) PO SCH (21:36)
[2019-04-20] MEDS: PRENATAL VITAMINS W/ FOLIC ACID TABLET (FP) PO SCH (10:04)
[2019-04-20] MEDS: QUEtiapine FUMARATE 100 MG TABLET (FP) PO SCH (21:04)
[2019-04-20] MEDS: MELATONIN 5 MG TABLETS PO PRN (21:04)
[2019-04-20] MEDS: THIAMINE HCL 100 MG TABLET (FP) PO SCH (21:04)
[2019-04-21] MEDS: PRENATAL VITAMINS W/ FOLIC ACID TABLET (FP) PO SCH (10:13)
[2019-04-21] MEDS: THIAMINE HCL 100 MG TABLET (FP) PO SCH (21:43)
[2019-04-21] MEDS: QUEtiapine FUMARATE 100 MG TABLET (FP) PO SCH (21:44)
[2019-04-21] MEDS: MELATONIN 5 MG TABLETS PO PRN (21:44)
[2019-04-22] MEDS: PRENATAL VITAMINS W/ FOLIC ACID TABLET (FP) PO SCH (10:22)
[2019-04-22] MEDS: QUEtiapine FUMARATE 100 MG TABLET (FP) PO SCH (21:10)
[2019-04-22] MEDS: THIAMINE HCL 100 MG TABLET (FP) PO SCH (21:10)
[2019-04-22] MEDS: MELATONIN 5 MG TABLETS PO PRN (21:10)
--- NOTE | 2019-04-23 09:14 | CONSULT ---
[facility] Psychiatric Consult - Data Date of interview: 04/23/19 Admission source: [facility] Identifying data: Patient is a 28 year old single male, father of one, unemployed, domiciled, and is supported by food stamps. This is one of multiple admissions for patient. Patient admitted to for alcohol, opiate, methamphetamine dependence. Substance Abuse History: Smoking Cessation. Smoking history: Current every day smoker. Have you smoked in the past 12 months: Yes. Aproximately how many cigarettes per day: 7. Cigars Per Day: 0. Hx Chewing Tobacco Use: No. Initiated information on smoking cessation: Yes. 'Breaking Loose' booklet given : 04/06/19 (t-1). - Substance & Tx. History. Hx Alcohol Use: Yes. Hx Substance Use: Yes. Substance Use Type: Alcohol, Heroin, Marijuana. Hx Substance Use Treatment: Yes (detox, rehab). - Substances abused. Alcohol. Substance route: Oral. Amount used: 2pints of Vodka/ 5 8oz beers. Age of first use: 15. Date of last use: 04/06/19. Oxycontin. Other (specify): Percocet. Substance route: Oral. Frequency: 1-2 times per week. Amount used: 30mg. Age of first use: 20. Date of last use: 03/16/19. Methamphetamine. Other (specify): ecstasy. Substance route: Oral. Frequency: 3-6 times per week. Amount used: 3 pills. Age of first use: 22. Date of last use: . Marijuana/Hashish. Substance route: Smoking. Frequency: 1-3 times last 30 days. Amount used: 1 joint. Age of first use: 15. Date of last use: 04/05/19. Alprazolam (Xanax). Substance route: Oral. Frequency: 1-2 times per week. Amount used: two 2mg ovals. Age of first use: 22. Date of last use : 04/04/19. Other. Other (specify): Percocet. Substance route: Oral. Frequency: 3-6 times per week. Amount used: 30mg. Age of first use: 20. Date of last use: 03/29/19 Psychiatric History: Patient seen by insurance underwriter on 04/07/19. History remains consistent. Patient denies h/o psychiatric hospitalization and suicide attempt. Reports his first psychiatric contact was a couple months ago at an outpatient clinic on [address] [place] [address]. States he was prescribed medication due to his history of alcohol dependence (naltrexone, campral??) although is unsure of the name of the medication. At present patient reports stable mood but is experiencing difficulty sleeping. Physical/Sexual Abuse/Trauma History: denies. Mental Status Exam - Mental Status Exam Alert and Oriented to: Time, Place, Person Cognitive Function: Good Patient Appearance: Well Groomed Mood: Euthymic Affect: Mood Congruent Patient Behavior: Cooperative Speech Pattern: Appropriate Voice Loudness: Normal Thought Process: Goal Oriented Thought Disorder: Not Present Hallucinations: Denies Suicidal Ideation: Denies Homicidal Ideation: Denies Insight/Judgement: Poor Sleep: Poorly Appetite: Fair Muscle strength/Tone: Normal Gait/Station: Normal Psychiatric Findings - Problem List ([place] 1, 2,3) (1) Alcohol dependence Current Visit: Yes Status: Acute (2) Substance induced mood disorder Current Visit: Yes Status: Acute (3) Substance-induced sleep disorder Current Visit: Yes Status: Acute (4) Methamphetamine dependence Current Visit: Yes Status: Chronic (5) Opiate abuse, episodic Current Visit: Yes Status: Chronic - Initial Treatment Plan Initial Treatment Plan: Psychoeducation provided. Rehab in progress. Will continue seroquel 100mg HS. Will order Belsomra 10mg HS prn. Benefits and side effects discussed. Verbal consent given.
[2019-04-23] MEDS: PRENATAL VITAMINS W/ FOLIC ACID TABLET (FP) PO SCH (09:48)
[2019-04-23] MEDS: QUEtiapine FUMARATE 100 MG TABLET (FP) PO SCH (21:29)
[2019-04-23] MEDS: MELATONIN 5 MG TABLETS PO PRN (21:29)
[2019-04-23] MEDS: THIAMINE HCL 100 MG TABLET (FP) PO SCH (21:29)
[2019-04-23] MEDS ORDERED: SUVOREXANT 10 MG TABLET PO PRN (22:00)
[2019-04-24] MEDS: PRENATAL VITAMINS W/ FOLIC ACID TABLET (FP) PO SCH (10:14)
[2019-04-24] MEDS: QUEtiapine FUMARATE 100 MG TABLET (FP) PO SCH (21:39)
[2019-04-24] MEDS: MELATONIN 5 MG TABLETS PO PRN (21:39)
[2019-04-24] MEDS: THIAMINE HCL 100 MG TABLET (FP) PO SCH (21:39)
[2019-04-25] MEDS: PRENATAL VITAMINS W/ FOLIC ACID TABLET (FP) PO SCH (10:52)
[2019-04-25] MEDS: THIAMINE HCL 100 MG TABLET (FP) PO SCH (21:03)
[2019-04-25] MEDS: QUEtiapine FUMARATE 100 MG TABLET (FP) PO SCH (21:03)
[2019-04-25] MEDS: MELATONIN 5 MG TABLETS PO PRN (21:04)
[2019-04-26] MEDS: PRENATAL VITAMINS W/ FOLIC ACID TABLET (FP) PO SCH (09:40)
--- NOTE | 2019-04-26 14:19 | PN ---
[facility] Progress Note Note: Psychiatry Attending's note : Called for renewal of belsomra. Chart reviewed. Orders revisited. Belsomra confirmed. No report of adverse effects. communications media professor Dang Hewitt's note :appreciated. Belsomra 10 mg po hs prn. Renewed.
[2019-04-26] MEDS: QUEtiapine FUMARATE 100 MG TABLET (FP) PO SCH (21:47)
[2019-04-26] MEDS: THIAMINE HCL 100 MG TABLET (FP) PO SCH (21:47)
[2019-04-26] MEDS: MELATONIN 5 MG TABLETS PO PRN (21:47)
[2019-04-26] MEDS: SUVOREXANT 10 MG TABLET PO PRN (21:48)
[2019-04-27] MEDS: PRENATAL VITAMINS W/ FOLIC ACID TABLET (FP) PO SCH (09:57)
[2019-04-27] MEDS: MELATONIN 5 MG TABLETS PO PRN (21:01)
[2019-04-27] MEDS: QUEtiapine FUMARATE 100 MG TABLET (FP) PO SCH (21:01)
[2019-04-27] MEDS: THIAMINE HCL 100 MG TABLET (FP) PO SCH (21:02)
[2019-04-27] MEDS: SUVOREXANT 10 MG TABLET PO PRN (21:02)
[2019-04-28] MEDS: PRENATAL VITAMINS W/ FOLIC ACID TABLET (FP) PO SCH (09:42)
[2019-04-28] MEDS: QUEtiapine FUMARATE 100 MG TABLET (FP) PO SCH (21:38)
[2019-04-28] MEDS: THIAMINE HCL 100 MG TABLET (FP) PO SCH (21:39)
[2019-04-28] MEDS: MELATONIN 5 MG TABLETS PO PRN (21:39)
[2019-04-28] MEDS: SUVOREXANT 10 MG TABLET PO PRN (21:39)
[2019-04-29] MEDS: PRENATAL VITAMINS W/ FOLIC ACID TABLET (FP) PO SCH (10:13)
[2019-04-29] MEDS: THIAMINE HCL 100 MG TABLET (FP) PO SCH (21:03)
[2019-04-29] MEDS: QUEtiapine FUMARATE 100 MG TABLET (FP) PO SCH (21:03)
[2019-04-29] MEDS: SUVOREXANT 10 MG TABLET PO PRN (21:05)
[2019-04-29] MEDS: MELATONIN 5 MG TABLETS PO PRN (21:06)
[2019-04-30] MEDS: PRENATAL VITAMINS W/ FOLIC ACID TABLET (FP) PO SCH (09:50)
[2019-04-30] MEDS: THIAMINE HCL 100 MG TABLET (FP) PO SCH (21:43)
[2019-04-30] MEDS: QUEtiapine FUMARATE 100 MG TABLET (FP) PO SCH (21:43)
[2019-04-30] MEDS: MELATONIN 5 MG TABLETS PO PRN (21:43)
[2019-04-30] MEDS: SUVOREXANT 10 MG TABLET PO PRN (21:44)
[2019-05-01] MEDS: PRENATAL VITAMINS W/ FOLIC ACID TABLET (FP) PO SCH (10:01)
--- NOTE | 2019-05-01 13:08 | DS ---
[facility] Rehab Discharge Summary - [facility] Rehab Discharge Summary Admission Date: 04/11/19 Discharge Date: 05/02/19 - History Present History: Alcohol dependence, Cannabis dependence Pertinent Past History: History of Present Illness: 28 yo gentleman here for detox from alcohol - also using ecstasy/ methamphetamines alternating with alprazolam. History of previous detox and rehab here in in Sep 2016 - states he did well for a few months but then relapsed. No seizures but has had black outs. - Discharge Physical Exam Vital Signs: Vital Signs Temperature 98.5 F 05/01/19 06:42 Pulse Rate 89 05/01/19 06:42 Respiratory Rate 18 05/01/19 06:42 Blood Pressure 116/71 05/01/19 06:42 O2 Sat by Pulse Oximetry (%) Pertinent Admission Physical Exam Findings: - Physical General Appearance:no apparent distress HEENTM: Normocephalic, Normal Voice, PERRLA LUNGS: clear Neck: supple, trachea midline Cardiology: S1 S2 Abdominal: +BS, Flat, Soft Musculoskeletal: full range of Motion, Gait Steady Neurological: cn 2-12 intact - Treatment Discharge Condition: Outpatient referral accepted (Medically stable for discharge.Patient is going to [facility]. Patient is familiar with program and attended it in the past.) Hospital Course: patient was adherent to his treatment plan and medication regimen. He has no acute or immediate medical problems that prevent discharge at this time. - Medication Discharge Medications: Ambulatory Orders Quetiapine Fumarate [Seroquel] 100 tab PO HS 04/11/19 - Medication-Assisted Treatment (MAT) Medication-Assisted Treatment (MAT): No - Discharge Instructions Diet, activity, other medical instructions: Diet: as tolerated Activity: as tolerated Other medical instructions: Please keep aftercare appointment. - Diagnosis (1) Alcohol dependence Current Visit: Yes Status: Chronic (2) Methamphetamine dependence Current Visit: Yes Status: Chronic (3) Opiate abuse, episodic Current Visit: Yes Status: Chronic (4) Marijuana use Current Visit: No Status: Chronic - Follow-up Referral Minutes to complete discharge: 20 - AMA Did Patient Leave Against Medical Advice: No
[2019-05-01] MEDS: QUEtiapine FUMARATE 100 MG TABLET (FP) PO SCH (21:01)
[2019-05-01] MEDS: THIAMINE HCL 100 MG TABLET (FP) PO SCH (21:01)
[2019-05-01] MEDS: MELATONIN 5 MG TABLETS PO PRN (21:01)
[2019-05-01] MEDS ORDERED: SUVOREXANT 10 MG TABLET PO PRN (22:00)
[2019-05-02 06:49] VITALS: BP 115/75; PULSE 74; TEMP 97.7
[2019-05-02] MEDS: PRENATAL VITAMINS W/ FOLIC ACID TABLET (FP) PO SCH (09:34)
--- NOTE | 2019-05-02 10:51 | PN ---
[facility] Progress Note Note: Patient is discharged today. Script for 30 days supply of Seroquel 100 mg/hs electronically transmitted to [facility] at [address] [place], [place] [id number]
== END 2019-05-02 10:17 | disposition home or self-care (01) | DRG 772 ==
LOC: YASAS 12:14 → Y3W 12:17
PROVIDERS: ADMIT Neuromusculoskeletal Medicine & OMM; ATTEND Neuromusculoskeletal Medicine & OMM
PROC: HZ42ZZZ Group Counseling for Substance Abuse Treatment, Cognitive-Behavioral (ICD-10-PCS; principal; 2019-04-11)
DX: F10.20 Alcohol dependence, uncomplicated (principal); F11.10 Opioid abuse, uncomplicated; F12.90 Cannabis use, unspecified, uncomplicated; F19.24 Other psychoactive substance dependence with psychoactive substance-induced mood disorder; F19.282 Other psychoactive substance dependence with psychoactive substance-induced sleep disorder; F17.210 Nicotine dependence, cigarettes, uncomplicated